=== PATIENT | female | born 1945 | race Caucasian/White ===

== ENCOUNTER → 2016-12-14 | Outpatient (CLI) | payer OTHER, MEDICARE ==
[~2016-12-14] MED LIST: ASCO10003 PO; ASPI81TA28 PO; CALC500C70 PO; COEN1CAP28 PO; CTP/1 PO; HYDR25TA4 PO; IBUP1CAP9 PO; MULT-884 PO; PRLSR20 PO; SERT-234 PO; SIMV40TA2 PO; VITA400C15 PO
--- NOTE | 2016-12-15 06:13 | PAP/PSG TECHNICIAN REPORT ---
[facility] Ear Nose And Throat Specialist Polysomnogram Report Study name: None Report date: 12/15/2016 Study date: 12/14/2016 Referring Physician: Chaparrita Matson M.D. Name: MARLIN GARDUNO Interpreting Physician: Angelina Matson M.D. Date of : 1945 Ear Nose And Throat Specialist: Bita James, PSGT. Sex: Female Age: 71 StudyType: PSG Weight: 215 lbs Height: 71 years, Height 5' 8" BMI: 32.69 Medications: Prilosec 20 mg, Meloxicam 7.5 10 mg, Zocor 40 mg, Fosamax 70 mg, Sertraline 100 mg , Lorazepam 0.5 mg, Catapres 0.1 mg, Hydrodiuril 25 mg, co q-10, Patient History 71 yr. old female in room 7, here for a diagnostic titration sleep study. Pt. had an ahi of 7.7 on her baseline study in 10/2016. Parameters Monitored NPSG: E1-M2, E2-M1, Fp1-M2, Fp2-M1, F3-M2, F4-M2, F4-M1, C3-M2, C4-M2, C4-M1, O1-M2, O2-M2, O2-M1, T3-M2, T4-M1, P3-M2, P4-M1, CHIN1, CHIN2, HR, EKG, Legs, PFLOW, SNOR, FLOW, CFLOW, Tidal Volume, THOR, ABDO, SpO2, PLTH, CPRESS, ETCO2 Wave, ETCO2, pH Sleep Architecture Sleep Stages Time at Lights Off 10:23:42 PM STAGES Time (min.) TST (%) Time at Lights On 5:49:42 AM Wake 52.5 -- Total Recording Time (TRT) 436.00 min. N1 9.0 2 Total Sleep Period (TSP) 422.5 min. N2 299.0 78 Total Sleep Time (TST) 383.5min. N3 0.0 0 Awake Time 52.5 min. REM 75.5 20 Wake after Sleep Onset 49.0 min. Sleep Efficiency (SE) 88 % Sleep Onset Latency (ARGELIA) 13.5 min. Number of Stage 1 Shifts None Awakenings 7 Stage Changes 32 Number of REM periods 4 REM 75.5 20 REM Latency 133.5 min. NREM 308.0 80 Body Position Analysis Supine Right Left Side Prone Vertical Total Sleep Time (min.) 0.1 383.5 0.0 383.50 0.0 0.0 Total Sleep Time (%) 0% 100% 0% 100 0% N/A% Total Sleep Time REM (min.) 0.0 75.5 0.0 None 0.0 0.0 Total Sleep Time NREM (min.) 0.0 308.0 0.0 None 0.0 0.0 Intermittent Wake (min.) 0.1 52.4 0.0 None 0.0 0.0 Total Sleep Period (%) 0% None None None None None Arousals Myoclonus (PLM) * Events Count Index Events Count Index Spontaneous 28 4 Events Awake (PLMW) 0 0.0 Respiratory 1 0.2 Events Asleep w/ Arousal (PLMA) 6 0.9 PLM 6 1 Events Asleep w/o Arousal (PLMS) 352 55.1 Snoring 0 0 Total Asleep 358 56.0 Total 35 5 Total 358 49 Respiratory Analysis * CA OA MA CH H RERA Total Count 0 0 0 0 5 0 5 Index 0.0 0.0 0.0 0 0.8 0 0.8 Mean Duration 0.0 0.0 0.0 0.00 15.9 0.0 15.9 Longest Duration 0.0 0.0 0.0 0.00 0.0 0.0 17.6 Respiratory Event Summary Total Supine ~Supine Right Left Prone REM NREM Apneas Count 0 N/A 0 0 N/A N/A 0 0 Index 0.0 N/A 0 0.0 N/A N/A 0 0 Hypopneas (4% Desat) Count 5 N/A 5 5 N/A N/A 0 5 Index 0.8 N/A 1 0.8 N/A N/A 0.0 1.0 Apneas & All Hypopneas Count 5 N/A 5 5 N/A N/A 0 5 Index 0.8 N/A 1 1 N/A N/A 0.0 1.0 Respiratory Events (Painter Interior Finish+All Hyp+RERA) Count 5 N/A 5 5 N/A N/A 0 5 Index 0.8 N/A 1 0.8 N/A N/A 0.0 1.0 Respiratory Related Arousal Count 1 N/A 1 1 N/A N/A 0 1 Index 0.2 N/A 0 0 N/A N/A 0 0 Snoring Analysis Supine Right Left Prone REM NREM Total Snore duration 1.5 min Snores count N/A 36 N/A N/A 14 22 36 Snore mean duration 2.5 Sec Snores index N/A 6 N/A N/A 11.1 4.3 5.6 TST with snoring (%) 0.4% Desaturation Event Summary: Minimum %SpO2 Event Count Mean/Min/Max Duration(sec.) Desaturation Index % Time In Bed > 90 15 18.8 / 6.0 / 48.0 2.3 90.6 86 - 90 1 6.0 / 6.0 / 6.0 1.5 9.4 81 - 85 0 N/A 0.0 0.0 76 - 80 0 N/A 0.0 0.0 71 - 75 0 N/A 0.0 0.0 66 - 70 0 N/A 0.0 0.0 61 - 65 0 N/A 0.0 0.0 56 - 60 0 N/A 0.0 0.0 51 - 55 0 N/A 0.0 0.0 < 50 0 N/A 0.0 0.0 Total REM NREM Awake <50% 0.0 min. 0.0 min. 0.0 min. 0.0 min. 51 - 60% 0.0 min. 0.0 min. 0.0 min. 0.0 min. 61 - 70% 0.0 min. 0.0 min. 0.0 min. 0.0 min. 71 - 80% 0.0 min. 0.0 min. 0.0 min. 0.0 min. 81 - 90% 40.4 min. 5.3 min. 22.6 min. 12.5 min. 91 - 100% 387.6 min. 70.2 min. 284.9 min. 32.5 min. Average 92 92 92 92 Minimum SpO2 86 87 88 86 Desaturation Event Index 2.1 1.6 2.5 0.0 # Desat. Events below 89% 2 1 1 N/A Time(%) with Saturation below 89% 0.2 0.0 0.1 0.1 Time(min.) with Saturation below 89% 0.8 0.1 0.4 0.3 Heart Rate Analysis End Tidal CO2 Analysis Min (bpm) Max (bpm) Average (bpm) TSP (mins) % of TSP Awake 62 161 72 Above 55 mmHg 0.0 0.0 NREM 62 80 71 50-55 mmHg 0.0 0.0 REM 61 76 69 45-50 mmHg 383.4 100.0 Overall 61 80 70 40-45 mmHg 0.0 0.0 35-40 mmHg 0.0 0.0 30-35 mmHg 0.0 0.0 Average ETCO2 0.0 Supplemental O2 Values Minimum O2 level: None Value Start Time End Time Ear Nose And Throat Specialist Comments PAP Study: MS. Garduno slept in the right, and left, positions. No cardiac arrhythmia or PLM's noted. No bruxism noted. CPAP was initiated at +5CMH2O and up-titrated to an optimal level of +6 CMH2O, which nearly eliminated all respiratory events and snoring. during titration Ms. Garduno woke to use the restroom one time during the night. Ms. Garduno stated, I did sleep as well as I do when I am in my own bed". The final report will be interpreted and signed by a sleep physician. The completed physician report will then be placed in the patient medical record. Therapy Event: Therapy (cm H20) 0 5 6 Total Time at Pressure (min.) 0.6 392.4 43.0 TST at Pressure (min.) 0.0 347.5 36.0 # Periods 1 1 1 Sleep Onset (min.) N/A 12.9 0.0 REM Onset (min.) N/A 146.4 N/A Sleep Efficiency % 0 88 83 Wakefulness (%) 100.0 11.4 16.3 Wakefulness (min.) 0.6 44.9 7.0 NREM 1 (%) 0.0 2.0 2.3 NREM 1 (min.) 0.0 8.0 1.0 NREM 2 (%) 0.0 67.3 81.4 NREM 2 (min.) 0.0 264.0 35.0 NREM 3 (%) 0.0 0.0 0.0 NREM 3 (min.) 0.0 0.0 0.0 REM (%) 0.0 19.2 0.0 REM (min.) 0.0 75.5 0.0 # Arousals N/A 32 3 Arousal Index N/A 5.5 5.0 # Snore N/A 32 4 Snore Index N/A 5.5 6.7 AHI N/A 0.7 1.7 AHI Supine N/A N/A N/A AHI Non-Supine N/A 0.7 1.7 NREM AHI N/A 0.9 1.7 REM AHI N/A 0.0 N/A RDI N/A 0.7 1.7 # Obstructive N/A 0 0 # Central Ap N/A 0 0 # Mixed N/A 0 0 # Hypopneas N/A 4 1 RERAS N/A 0 0 Total Respiratory Events N/A 4 1 Time Below SpO2 89.00% (min.) 0.0 0.5 0.0 Mean NREM SpO2 (%) N/A 92 92 Mean REM SpO2 (%) N/A 92 N/A Mean Sleep SpO2 (%) N/A 92 92 Min NREM SpO2 (%) N/A 88 90 Min REM SpO2 (%) N/A 87 N/A Position Supine (min.) 0.0 0.0 0.0 Position Non-supine (min.) 0.0 347.5 36.0 LM Index Sleep N/A 52.7 88.4 LM Index NREM N/A 62.2 88.4 LM Index REM N/A 18.3 N/A Mean Heart Rate (bpm) N/A 71 68 Min Heart Rate (bpm) N/A 61 63
--- NOTE | 2016-12-21 00:54 | POLYSOMNOGRAPH REPORT ---
REFERRING PERSON: Dr. Shira Matson. SOUVENIR AND NOVELTY MAKER: Roopa James. Ms. Vogt is a 71-year-old female who had a PSG performed in 10/2016, which showed mild sleep apnea. She returns to the sleep lab for a titration study. [place] sleepiness scale score on the evening of this study is not listed. BMI is 32.69. Following the technical and digital specifications of the [employer] [place] (AASM) a standard diagnostic polysomnogram was performed monitoring EEG, EOG, EMG (chin and leg deviations), oxygen saturation, body position, digital video, respiratory effort and airflow. The sleep Stage and event scoring was based on the AASM Manual for the Scoring of Sleep and Associated Events 2007 edition. Apneas are defined as a drop in the peak thermal sensor excursion by >90% of baseline for at least 10 seconds. Hypopneas were scored using the 4% oxygen desaturation rule (4A-[employer]) and a decrease in the nasal pressure excursions by >30% of baseline for at least 10 seconds. Respiratory effort-related arousal (RERA's) is defined as a sequence of breaths lasting at least 10 seconds characterized by increasing respiratory effort or flattening of the nasal pressure waveform leading to an arousal from sleep when the sequence of breaths does not meet criteria for an apnea or hypopnea. Apnea Hypopnea index (AHI) is defined as the number of apneas and hypopneas occurring in an hour of sleep. Respiratory disturbance index (RDI) is defined as the number of apneas, hypopneas, and RERA's occurring in an hour of sleep. Ms. Vogt's total sleep time was 422.5 minutes. Total sleep time was 383.5 minutes. Sleep efficiency was 88%. Latency to sleep onset was 13.5 minutes with wake after sleep onset of 49 minutes. Total non-REM sleep time was 308 minutes. She spent 2% of that time in N1 sleep, 78% in N2 sleep, and no time in N3 sleep. REM latency was 133.5 minutes. Total REM sleep time was 75.5 minutes or 20% of total sleep time. There were 35 cortical arousals from sleep. Twenty eight of these arousals were spontaneous, 1 was due to a respiratory event and 6 were due to periodic limb movements. There were 358 periodic limb movements noted on this test. Limb movement index was 56. Limb movement with arousal index was 0.9. There were no central obstructive or mixed apneas on this test. There were 5 hypopneas and no RERA. Apnea-hypopnea index on this titration was 0.8. There were 36 periodic limb movements. Limb movement index was 0.4. Snoring index was 36. Total sleep time with snoring was 0.4%. Mean saturation during sleep was 92% with desaturations to 86% on this study. There was no cardiac ectopy. Heart rates ranged from a low of 61 beats per minute to a high of 80 beats per minute during sleep. As stated above, this was a titration study. She was observed on a pressure of 5 for 347.5 minutes of sleep time. 75.5 of those minutes were spent in REM sleep. There was no supine REM sleep on this test. She slept on her right side the entire night. Saturations were less than 89 for 0.5 minutes of sleep time on this pressure and AHI and RDI on this pressure were both 0.7. IMPRESSION AND PLAN: Successful CPAP titration study in this patient with mild sleep apnea. She appears to do well on a CPAP pressure of 5. This eliminates her hypoxemia as well as her apnea. She should be started on this at home and a download reviewed in 1 month both to check compliance as well as AHI.
== END | disposition home or self-care (01) ==
LOC: C.NEUR 21:00
PROVIDERS: ATTEND Family Medicine
DX: G47.36 Sleep related hypoventilation in conditions classified elsewhere (principal); I10 Essential (primary) hypertension

== ENCOUNTER → 2017-10-20 | Outpatient (CLI) | payer OTHER, MEDICARE ==
--- NOTE | 2017-10-20 14:12 | MAMMOGRAPHY REPORT ---
BILATERAL DIGITAL SCREENING MAMMOGRAM TOMOSYNTHESIS WITH CAD: 10/20/2017 CLINICAL HISTORY: Routine screening. Patient has no complaints. TECHNIQUE: Breast tomosynthesis in addition to standard 2D mammography was performed. Current study was also evaluated with a Computer Aided Detection (CAD) system. COMPARISON: Comparison is made to exams dated: 10/19/2016 mammogram, 10/16/2015 mammogram, 4 mammogram, 10/09/2013 mammogram, 10/12/2012 mammogram, and 10/31/2012 ultrasound biopsy - [facility]. BREAST COMPOSITION: The tissue of both breasts is heterogeneously dense, which may obscure small mas ses. FINDINGS: There is expected architectural distortion with dystrophic calcification and a ribbon-shape d biopsy marker clip in the lower inner quadrant of the right breast, at the site of prior lumpectomy . There are diffuse benign-appearing rim calcifications throughout the right breast and a few benign -appearing calcifications left breast as well. Stable asymmetry of the size of the breasts, left gre ater than right, likely due to prior treatment of the right breast. No suspicious mass, architectura l distortion or cluster of new, suspicious microcalcifications is seen. IMPRESSION: ACR BI-RADS CATEGORY 2: BENIGN There is no mammographic evidence of malignancy. A 1 year screening mammogram is recommended. The pa tient will receive written notification of the results. Approximately 10% of breast cancers are not detected with mammography. A negative mammographic report should not delay biopsy if a clinically suggestive mass is present. Marina Roche M.D. ay/:10/20/2017 13:16:59 Contamination Consultant: Linette Loredo, M, [facility] letter sent: Normal 1/2 BI-RADS Code: ACR BI-RADS Category 2: Benign
== END | disposition home or self-care (01) ==
LOC: C.MAMM 11:04
PROVIDERS: ATTEND Internal Medicine
DX: Z12.31 Encounter for screening mammogram for malignant neoplasm of breast (principal)

== ENCOUNTER 2024-09-28 16:23 | Inpatient (IN) ==
[2024-09-28] MEDS: HYDROmorphone INJ 0.5 MG/0.5 ML SYR IV PRN (17:10)
[2024-09-28] MEDS: ONDANSETRON INJ 2 MG/ML 2 ML VIAL IV STA (17:10)
[2024-09-28 17:16] LABS: Basophils # (auto) 0.02 K/uL (0.00-0.20); Basophils % (auto) 0.2 %; Eosinophils # (auto) 0.11 K/uL (0.00-0.50); Eosinophils % (auto) 1.3 %; Hematocrit (blood only) 43.3 % (37.0-47.0); Hemoglobin 14.3 g/dl (12.0-16.0); Immature Granulocytes # (auto) 0.03 K/uL (0.01-0.20); Immature Granulocytes % (auto) 0.4 %; Lymphocytes # (auto) 1.75 K/uL (1.20-3.40); Lymphocytes % (auto) 21.4 %; Mean Corpuscular Hemoglobin 29.4 pg (25.0-34.0); Mean Corpuscular Volume 89.1 fL (80.0-100.0); Mean Platelet Volume 9.5 fL (9.4-12.4); Monocytes # (auto) 0.75 K/uL (0.11-0.59); Monocytes % (auto) 9.2 %; Neutrophils % (auto) 67.5 %; Platelet Count 185 K/uL (130-400); RDW Coefficient of Variation 13.4 % (11.5-14.5); RDW Standard Deviation 43.9 fL (36.4-46.3); Red Blood Count 4.86 M/uL (4.20-5.40); White Blood Count 8.16 K/ul (4.8-10.8)
[2024-09-28 17:22] LABS: Albumin Globulin Ratio 1.5 (0.9-2); Albumin Level 4.2 gm/dl (3.4-5.0); BUN Creatinine Ratio 35.5 (10-20); Bilirubin,Total 0.5 mg/dl (0.2-1.0); Calcium 9.5 mg/dl (8.6-10.3); Creatinine Clr Calc Pharmacy 86.6 ml/min; Globulin 2.8 gm/dl (2.5-4.0)
[2024-09-28 17:34] LABS: Appearance Urine Clear (Clear); Bilirubin Urine Negative (Negative); Blood Urine Negative (Negative); Color Urine Yellow; Glucose Urine UA Negative (Negative); Ketones Urine Negative (Negative); Leukocyte Esterase Urine Negative (Negative); Nitrite Urine Negative (Negative); Protein Urine Negative (Negative); Specific Gravity Urine 1.012 (1.000-1.030); Urobilinogen Urine Negative (Negative); pH Urine 6.5 (4.5-7.5)
--- NOTE | 2024-09-28 17:36 | Emergency Department Note ---
Impression & Plan Intractable low back pain, Ambulatory dysfunction ED Provider Note NAME: MARLIN TITUS AGE: 78 SEX: Female INFORMANT: Patient and family ED PROVIDER(S): Calixto Piper MD CHIEF COMPLAINT: Low back pain PLAN: Disposition: Admitted Outpatient prescription management: none Referral: None MEDICAL DECISION MAKING: Patient presented with increasing low back problems. No saddle anesthesia on examination. Negative straight leg raise. Patient had an IV established and was given a small dose of IV Dilaudid and Zofran. This did help. She did require supplemental oxygen to the effects of the Dilaudid. Her pain did resolve. Patient had unremarkable laboratory testing including urinalysis. Patient underwent CT imaging and appears that she has acute on chronic L4 compression fracture with marked degenerative changes, stenosis and impingement. The patient, family and I had a long discussion. I did review imaging with them. Given the patient's ambulatory dysfunction, increasing pain and dysfunction I discussed treatment options including admission. Family and patient are in agreement with admission for pain management, PT OT evaluation, and consideration for possible MR imaging. Given the patient's decline over the last few days she is at significant risk for falling. [facility] D[facility]ed case with Dr. Patel. Patient was evaluated in the ER for further management. Care/management discussed with: product marketing programs manager Level of care consideration(s): After review of the information above and other included data, I feel the patient requires escalation of care to admission Triage Nursing notes: reviewed and agree them. Vital Signs: reviewed and remarkable for hypertension Additional History obtained from: none Chronic Medical/Social Conditions affecting care: Chronic low back pain, degenerative disc disease Prior/ Outside/ External records reviewed: none Differential Diagnosis: Musculoskeletal, disc herniation, fracture, metastatic disease, cord compression, discitis, sciatica, cauda equina, infection, aortic disease, renal colic, gastrointestinal, as well as other pathologies. Diagnostics, independently interpreted by me: ECG: none Cardiac Monitoring: Cardiac monitoring ordered by me: The patient was placed on continuous cardiac monitoring and observed. It revealed a normal sinus rhythm at 80 beats per minute without ectopy or evidence of dysrhythmia. Medical decision rules: none Imaging studies: CT imaging of the lumbar spine reveals an acute on chronic L4 compression fracture. Severe degenerative disc disease. [id number] noted L5- S1. Foraminal and canal stenosis present. I refer you to the EMR for further details. HPI: 78 year old Female arrives for evaluation of increasing low back pain. Patient has history of lumbar back problems. MRI done 4 months ago per family showed degenerative disc disease and impingement. Patient underwent pain management injection 3 days ago at [facility]. Since that time she has had increasing pain. She notes some tingling and numbness in her lower extremities. She has had a history of peripheral neuropathy however and the symptoms are not significantly different today. Patient also noted a headache that developed over the last few days. Her symptoms seem to be more pronounced with standing up. Current pain is a 7 out of 10. She notes prior to the injection she was having some pain radiating down the back of both lower extremities. That has resolved. She has had some constipation issues ongoing. Family notes patient is having increasing difficulty this week ambulating and is very unsteady on her feet. Pt denies trauma, LOC, neck pain, fevers, chills, malaise, chest pain, breathing difficulties, abdominal pain, saddle parasthesias, bowel or bladder dysfunction, urinary symptoms, or other complaints.. PAST MEDICAL HISTORY: See Below, chronic low back pain, degenerative disc disease PAST SURGICAL HISTORY: See Below, SOCIAL HISTORY: See Below, retired HOME MEDICATIONS: See Below ALLERGIES: See Below VITALS: See Below PHYSICAL EXAMINATION: GENERAL: Awake, alert, [id number], in no distress HENT: Normocephalic, atraumatic. Oropharynx unremarkable. EYES: Normal conjunctiva. Sclera non-icteric. NECK: Inspection normal. Non-tender. Supple. No nuchal rigidity. FROM. No masses. RESPIRATORY: Clear to auscultation. No wheezes. No rales. Normal respiratory effort. CARDIAC: Normal rate. Normal rhythm. No murmurs. No rubs. Extremities warm and well perfused. Pulses equal. No JVD. GI: Soft, non-distended. No tenderness to palpation. No rebound or guarding. No masses. RECTAL: Deferred. MUSCULOSKELETAL: Atraumatic. Chest examination reveals no tenderness. The back is symmetrical on inspection without obvious abnormality. Injection sites negative for any sign of infection or drainage. There is no CVA tenderness to palpation. No joint edema. LOWER EXTREMITIES: Calves are equal size bilaterally and non-tender. No edema. No discoloration. NEURO: Normal sensorium. Subjective decrease sensation in the lower extremities however focal sensory or motor deficits noted. Negative straight leg raise. No saddle anesthesia. SKIN: No rash or jaundice noted. PROCEDURES: none CRITICAL CARE: none OBSERVATION NOTE: none Past Med/Surg History Problem List (Updated 09/28/24 @ 17:36 by Calixto Piper MD) Ambulatory dysfunction (Acute) Intractable low back pain (Acute) Scalp cyst Social History Smoking Status: Never smoker Preferred Language: Greenlandic Feels Safe at Home: Yes Allergies Allergies Allergy/AdvReac Type Severity Reaction Status Date / Time bee venom protein (honey bee) Allergy Severe Hand Unverified 09/28/24 18:09 swelling lisinopril Allergy Severe Mouth Unverified 09/28/24 18:09 Swelling Home Meds Home Medications Medication Instructions Recorded Confirmed acetaminophen 650 mg 650 mg PO HS 09/28/24 09/28/24 tablet,extended release ascorbic acid (vitamin C) 1,000 mg 1 g PO HS 09/28/24 09/28/24 tablet (Vitamin C) aspirin 81 mg tablet,delayed 81 mg PO HS 09/28/24 09/28/24 release atenolol 25 mg tablet 25 mg PO QAM 09/28/24 09/28/24 calcium 600 mg (as 1 cap PO HS 09/28/24 09/28/24 carbonate)-vitamin D3 5 mcg (200 unit) capsule (Calcium 600 + D(3)) coenzyme Q10 100 mg capsule 100 mg PO HS 09/28/24 09/28/24 (CoQ-10) cranberry fruit 450 mg tablet 450 mg PO HS 09/28/24 09/28/24 (cranberry) glucosamine sulf dipot 1 cap PO HS 09/28/24 09/28/24 chlr,msm,chond 550 mg-C 30 mg-keila 1 mg capsule (Glucosamine Chondroitin) hydrochlorothiazide 12.5 mg tablet 12.5 mg PO QAM 09/28/24 09/28/24 meloxicam 7.5 mg tablet 7.5 mg PO DAILY PRN Severe Pain 09/28/24 09/28/24 (Scale Score 7-10) multivitamin 1 tab PO HS 09/28/24 09/28/24 omeprazole 20 mg capsule,delayed 20 mg PO DAILYBB 11/28/24 11/28/24 release rosuvastatin 5 mg tablet 5 mg PO QAM 09/28/24 09/28/24 sertraline 100 mg tablet 150 mg PO QAM 09/28/24 09/28/24 vibegron 75 mg tablet (Gemtesa) 75 mg PO DAILY 09/28/24 09/28/24 vitamin E 268 mg (400 unit) capsule 268 mg PO HS 09/28/24 09/28/24 Results & Data (ED) Vital Signs Vital Signs - 24 hr 09/28/24 16:25 09/28/24 16:41 09/28/24 17:00 Temperature 36.7 C Temperature Source Skin Pulse Rate 72 72 69 Pulse Rate [Apical] Pulse Rhythm Regular Respiratory Rate 16 16 Respiratory Effort / Characteristics Non-Labored Spontaneous Respiratory Depth Normal Respiratory Pattern Regular Blood Pressure 138/83 Blood Pressure [Left Arm] Blood Pressure Mean 101 Blood Pressure Mean [Left Arm] Pulse Oximetry 95 95 Oxygen Delivery Method Room Air Room Air Sepsis Recent Fever Within 48 Hours No Sepsis New/Unexplained Change in Mental Status N/A Sepsis Action Taken by Nursing No Action Required 09/28/24 17:12 Temperature Temperature Source Pulse Rate Pulse Rate [Apical] 80 Pulse Rhythm Respiratory Rate 20 Respiratory Effort / Characteristics Non-Labored Spontaneous Respiratory Depth Normal Respiratory Pattern Regular Blood Pressure Blood Pressure [Left Arm] 155/83 H Blood Pressure Mean Blood Pressure Mean [Left Arm] 107 Pulse Oximetry Oxygen Delivery Method Sepsis Recent Fever Within 48 Hours Sepsis New/Unexplained Change in Mental Status Sepsis Action Taken by Nursing Laboratory Data 09/28/24 16:40 09/28/24 16:40 Lab Results 09/28/24 09/28/24 Range/Units 16:40 17:12 WBC 8.16 (4.8-10.8) K/ul RBC 4.86 (4.20-5.40) M/uL Hgb 14.3 (12.0-16.0) g/dl Hct 43.3 (37.0-47.0) % MCV 89.1 (80.0-100.0) fL MCH 29.4 (25.0-34.0) pg MCHC 33.0 (32.0-36.0) g/dL RDW Std Deviation 43.9 (36.4-46.3) fL RDW Coeff of Sanjuanita 13.4 (11.5-14.5) % Plt Count 185 (130-400) K/uL MPV 9.5 (9.4-12.4) fL Immature Gran % (Auto) 0.4 % Neut % (Auto) 67.5 % Lymph % (Auto) 21.4 % [place] % (Auto) 9.2 % Eos % (Auto) 1.3 % Baso % (Auto) 0.2 % Neut # (Auto) 5.50 (1.40-6.50) K/uL Lymph # (Auto) 1.75 (1.20-3.40) K/uL [place] # (Auto) 0.75 H (0.11-0.59) K/uL Eos # (Auto) 0.11 (0.00-0.50) K/uL Baso # (Auto) 0.02 (0.00-0.20) K/uL Immature Gran # (Auto) 0.03 (0.01-0.20) K/uL Sodium 139 (136-145) mmol/L Potassium 4.0 (3.5-5.1) mmol/L Chloride 103 (98-107) mmol/L Carbon Dioxide 29 (21-32) mmol/L Anion Gap 7 (3-11) BUN 22 (6-23) mg/dl Creatinine 0.62 (0.6-1.2) mg/dl Est Cr Clr Drug Dosing 86.6 ml/min eGFR 89.97 BUN/Creatinine Ratio 35.5 H (10-20) Glucose 99 (70-99(Fasting)) mg/dl Calcium 9.5 (8.6-10.3) mg/dl Total Bilirubin 0.5 (0.2-1.0) mg/dl AST 19 (13-39) U/L ALT 19 (7-52) U/L Alkaline Phosphatase 68 (34-104) U/L Total Protein 7.0 (6.0-8.3) gm/dl Albumin 4.2 (3.4-5.0) gm/dl Globulin 2.8 (2.5-4.0) gm/dl Albumin/Globulin Ratio 1.5 (0.9-2) Urine Color Yellow Urine Appearance Clear (Clear) Urine pH 6.5 (4.5-7.5) Ur Specific [place] 1.012 (1.000-1.030) Urine Protein Negative (Negative) Urine Glucose (UA) Negative (Negative) Urine Ketones Negative (Negative) Urine Blood Negative (Negative) Urine Nitrite Negative (Negative) Urine Bilirubin Negative (Negative) Urine Urobilinogen Negative (Negative) Ur Leukocyte Esterase Negative (Negative) Administered Medications Hydromorphone HCl (Hydromorphone Inj 0.5 Mg/0.5 Ml Syr) 0.25 mg IV Q15M PRN PRN Reason: Pain Stop: 10/12/24 17:03 Last Admin: 09/28/24 17:10 Dose: 0.25 mg Documented By: SERGEY Discontinued Medications Ondansetron HCl (Ondansetron Inj 2 Mg/Ml 2 Ml Vial) 4 mg IV NOW STA Stop: 09/28/24 17:05 Last Admin: 09/28/24 17:10 Dose: 4 mg Documented By: SERGEY Imaging Data Radiologist's Impression: Lumbar Spine CT 09/28/24 17:00 EXAM: CT Lumbar Spine Without Intravenous Contrast INDICATION: Back pain radiating down both legs. TECHNIQUE: Axial computed tomography images of the lumbar spine without intravenous contrast. Sagittal and coronal reformatted images were created and reviewed. This CT exam was performed using one or more of the following dose reduction techniques: automated exposure control, adjustment of the mA and/or kV according to patient size, and/or use of iterative reconstruction technique. COMPARISON: No relevant prior studies available. FINDINGS: Limitations: None. Vertebrae: The bones are diffusely demineralized. There is compression of the superior endplate of L4 which is likely acute on chronic. No retropulsion. There is approximately 25% generalized L4 height loss. There is moderate to severe facet arthrosis at all levels. There is moderate spondylosis and endplate sclerosis at L5-S1. There is grade 1 anterolisthesis of L4 and L5. Sacrum/coccyx: No significant abnormality noted. No acute change noted. Discs/spinal canal/neural foramina: There is severe disc narrowing L5-S1. Degenerative vacuum disc phenomenon and narrowing noted L2-L3 and L4-L5. There is mild ventral canal stenosis secondary to osteophyte disc complex at T12-L1. Ligamentous hypertrophy noted at all lumbar levels there is diffuse disc bulge with prominent subarticular components at L1-L2 with mild canal stenosis. There is asymmetric left disc protrusion and severe canal stenosis with ligamentous and facet hypertrophy at L2-L3. There is left foraminal stenosis and nerve root abutment at this level. Severe stenosis secondary to disc bulging and ligamentous and facet hypertrophy L3-L4. There is massive disc herniation along with ligamentous and facet hypertrophy causing extremely severe canal and foraminal stenosis at L4-L5. There is bilateral nerve root abutment and left side posterior displacement. There is asymmetric left lateral recess and subarticular disc bulge L5-S1. Severe bony foraminal narrowing and nerve root impingement on the left at L5-S1. Soft tissues: No significant abnormality noted. Kidneys: There is asymmetric mild dilatation of the right renal pelvis with normal caliber of the ureter. IMPRESSION: 1. Extensive degenerative changes identified with severe canal and foraminal stenosis left greater than right at L3-L4 and L4-L5. There is severe left bony foraminal encroachment and nerve impingement at L5-S1. 2. I suspect the subtle acute on chronic insufficiency fracture of the superior endplate of L4. 3. Possible mild chronic right UPJ obstruction. ACT 112: Negative or not required by law. Electronically signed by Deysi Frances 09-28-2024 5:54 PM Discharge Plan Visit Data Chief Complaint: Back Injury/Pain Stated Complaint: BACK PAIN, LEG PAIN, NUMBNESS, SPONGY ED Provider: Calixto Piper Discharge Problem: Intractable low back pain, Ambulatory dysfunction Forms Stand Alone Forms: My [facility] [employer] Prescriptions Prescriptions: No Action sertraline 100 mg tablet 150 mg PO QAM atenolol 25 mg tablet 25 mg PO QAM meloxicam 7.5 mg tablet 7.5 mg PO DAILY PRN (Reason: Severe Pain (Scale Score 7-10)) omeprazole 20 mg capsule,delayed release(DR/EC) 20 mg PO DAILYBB rosuvastatin 5 mg tablet 5 mg PO QAM hydrochlorothiazide 12.5 mg tablet 12.5 mg PO QAM Gemtesa 75 mg tablet 75 mg PO DAILY multivitamin Tablet 1 tab PO HS ascorbic acid (vitamin C) [Vitamin C] 1,000 mg Tablet 1 g PO HS aspirin 81 mg Tablet,Delayed Release (Dr/Ec) 81 mg PO HS acetaminophen [Tylenol Arthritis] 650 mg Tablet Extended Release 650 mg PO HS vitamin E 268 mg (400 unit) Capsule 268 mg PO HS coenzyme Q10 [CoQ-10] 100 mg Capsule 100 mg PO HS Calcium 600 + D(3) 600 mg-5 mcg (200 unit) Capsule 1 cap PO HS cranberry 450 mg Tablet 450 mg PO HS Rx Instructions: administer with a meal Glucosamine Chondroitin 550-30-1 mg Capsule 1 cap PO HS Referrals Referrals: Emily Zamora DO [Primary Care Provider] -
--- NOTE | 2024-09-28 17:54 | CT Scan Report ---
EXAM: CT Lumbar Spine Without Intravenous Contrast INDICATION: Back pain radiating down both legs. TECHNIQUE: Axial computed tomography images of the lumbar spine without intravenous contrast. Sagittal and coronal reformatted images were created and reviewed. This CT exam was performed using one or more of the following dose reduction techniques: automated exposure control, adjustment of the mA and/or kV according to patient size, and/or use of iterative reconstruction technique. COMPARISON: No relevant prior studies available. FINDINGS: Limitations: None. Vertebrae: The bones are diffusely demineralized. There is compression of the superior endplate of L4 which is likely acute on chronic. No retropulsion. There is approximately 25% generalized L4 height loss. There is moderate to severe facet arthrosis at all levels. There is moderate spondylosis and endplate sclerosis at L5-S1. There is grade 1 anterolisthesis of L4 and L5. Sacrum/coccyx: No significant abnormality noted. No acute change noted. Discs/spinal canal/neural foramina: There is severe disc narrowing L5-S1. Degenerative vacuum disc phenomenon and narrowing noted L2-L3 and L4-L5. There is mild ventral canal stenosis secondary to osteophyte disc complex at T12-L1. Ligamentous hypertrophy noted at all lumbar levels there is diffuse disc bulge with prominent subarticular components at L1-L2 with mild canal stenosis. There is asymmetric left disc protrusion and severe canal stenosis with ligamentous and facet hypertrophy at L2-L3. There is left foraminal stenosis and nerve root abutment at this level. Severe stenosis secondary to disc bulging and ligamentous and facet hypertrophy L3-L4. There is massive disc herniation along with ligamentous and facet hypertrophy causing extremely severe canal and foraminal stenosis at L4-L5. There is bilateral nerve root abutment and left side posterior displacement. There is asymmetric left lateral recess and subarticular disc bulge L5-S1. Severe bony foraminal narrowing and nerve root impingement on the left at L5-S1. Soft tissues: No significant abnormality noted. Kidneys: There is asymmetric mild dilatation of the right renal pelvis with normal caliber of the ureter. IMPRESSION: 1. Extensive degenerative changes identified with severe canal and foraminal stenosis left greater than right at L3-L4 and L4-L5. There is severe left bony foraminal encroachment and nerve impingement at L5-S1. 2. I suspect the subtle acute on chronic insufficiency fracture of the superior endplate of L4. 3. Possible mild chronic right UPJ obstruction. ACT 112: Negative or not required by law. Electronically signed by Deysi Frances 09-28-2024 5:54 PM
--- NOTE | 2024-09-28 19:25 | History & Physical Report ---
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 Patient had Transforaminal epidural lumbar injections on 09/25/2024 (6) Ambulatory dysfunction: (7) Hypertension: Plan Patient 78-year-old female with known severe degenerative spine disease and severe spinal stenosis of the lumbar spine seems to have acutely exacerbated after getting some spinal injections this past week. Now with increasing ambulatory dysfunction and radicular/neurogenic claudication symptoms. Patient denies any bowel or bladder issues that have changed acutely, no acute red flags that would indicate need for immediate surgical intervention tonight. Admit to the hospital for pain control PT/OT evaluations Case management consultation for possible rehab placement Scheduled Tylenol and gabapentin for pain control As needed oxycodone for moderate to severe pain MRI of the lumbar spine to evaluate for progression compared to June 2024 MRI. Pending results will determine if more urgent surgical evaluation required. Suspect patient may have spinal headache from procedure, if headache continues to worsen may need to consider head imaging. Continue outpatient medications as ordered Daughter at bedside and agreeable to plan of care History of Present Illness Chief Complaint: Spongy, weak legs and back pain and increasing difficulty with walking Primary Care Provider: Emily Zamora DO Patient is an 78-year-old female who has known severe degenerative spine, degenerative disc disease and severe spinal stenosis. Underwent pain management lumbar spine injections on Wednesday for management of her chronic back pain. Since Wednesday she is feels as though her legs have been a bit "spongy" and has had increased issues with ambulation. Came to the emergency room today for evaluation due to her concerns that she may fall. In the emergency room laboratory studies were really unremarkable. CT of the lumbar spine confirms severe degenerative spine disease. Due to some of her issues with ambulation, high risk for falling at home and potentially worsening of her symptoms of the last few days after injection was referred to our service for further evaluation. Time my evaluation patient states her pain is really fairly well- controlled. She describes a neuropathy/radiculopathy type of symptomatology down her lower back and both legs. She confirms that she has had increasing difficulties with ambulation her last few days but really has been progressing over the last few months. Her daughter who is at the bedside also confirms this. She states that since June her ability to ambulate has really declined. She had been previously walking without any assistive device. Over the past several weeks has been using a cane and most recently using a cane and furniture walking through her house. Her symptoms do seem to have exacerbated since her injections on Wednesday. Also complaining of a little bit of a headache since her injection. Denies any fever or chills. No chest pain or palpitations. She denies any issues with her bowel or bladder. Several weeks ago had some constipation but that has since improved since starting some Benefiber. It seemed to start when she started the Gemtesa. She denies any real weakness in her leg is more of a radicular type symptoms and balance and gait disorder. Patient also states that she has some significant degenerative knee arthritis. Has been seen orthopedics for this and had several injections. This is not been helping with her ambulation. Family has been encouraging patient to seek surgical opinion for her severe spinal disease. She had initially been not too interested in pursuing any type of surgical intervention, however, she does now have an appointment with orthopedic spine surgery at [facility] on October 19 Allergies Allergy/AdvReac Type Severity Reaction Status Date / Time bee venom protein (honey bee) Allergy Severe Hand Unverified 09/28/24 18:09 swelling lisinopril Allergy Severe Mouth Unverified 09/28/24 18:09 Swelling Home Medications Medication Instructions Recorded Confirmed Type acetaminophen 650 mg 650 mg PO HS 09/28/24 09/28/24 History tablet,extended release ascorbic acid (vitamin C) 1,000 mg 1 g PO HS 09/28/24 09/28/24 History tablet (Vitamin C) aspirin 81 mg tablet,delayed 81 mg PO HS 09/28/24 09/28/24 History release atenolol 25 mg tablet 25 mg PO QAM 09/28/24 09/28/24 History calcium 600 mg (as 1 cap PO HS 09/28/24 09/28/24 History carbonate)-vitamin D3 5 mcg (200 unit) capsule (Calcium 600 + D(3)) coenzyme Q10 100 mg capsule 100 mg PO HS 09/28/24 09/28/24 History (CoQ-10) cranberry fruit 450 mg tablet 450 mg PO HS 09/28/24 09/28/24 History (cranberry) glucosamine sulf dipot 1 cap PO HS 09/28/24 09/28/24 History chlr,msm,chond 550 mg-C 30 mg-keila 1 mg capsule (Glucosamine Chondroitin) hydrochlorothiazide 12.5 mg tablet 12.5 mg PO QAM 09/28/24 09/28/24 History meloxicam 7.5 mg tablet 7.5 mg PO DAILY PRN Severe Pain 09/28/24 09/28/24 History (Scale Score 7-10) multivitamin 1 tab PO HS 09/28/24 09/28/24 History omeprazole 20 mg capsule,delayed 20 mg PO DAILYBB 09/28/24 09/28/24 History release rosuvastatin 5 mg tablet 5 mg PO QAM 09/28/24 09/28/24 History sertraline 100 mg tablet 150 mg PO QAM 09/28/24 09/28/24 History vibegron 75 mg tablet (Gemtesa) 75 mg PO DAILY 09/28/24 09/28/24 History vitamin E 268 mg (400 unit) capsule 268 mg PO HS 09/28/24 09/28/24 History Past Med/Surg History Problem List (Updated 09/28/24 @ 19:22 by Albino Griffiths DO) Spinal headache Hypertension Degenerative disc disease, lumbar 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 Sclera clear Neck: Soft, no adenopathy Lungs: Clear to auscultation, decreased, no wheezes rales or rhonchi CV: S1-S2, regular Abdomen: Soft, nontender, nondistended Extremities: No significant edema Musculoskeletal: No significant pain to palpation over the lumbar spine or in the paravertebral lumbar musculature. Neuro: Strength in the lower extremity is adequate. Slight decrease strength in dorsiflexion of the right great toe when compared to the left Psych: Cooperative, normal mood Results & Data Results & Data Vital Signs (Past 12 Hours) Vital Signs Temp Pulse Pulse Resp BP BP Pulse Ox 09/28/24 19:00 67 20 155/83 H 99 09/28/24 17:12 80 20 155/83 H 09/28/24 17:00 69 09/28/24 16:41 72 16 95 09/28/24 16:25 36.7 C 72 16 138/83 95 O2 Del Method O2 Flow Rate 09/28/24 19:00 Nasal Cannula 3 09/28/24 17:12 09/28/24 17:00 09/28/24 16:41 Room Air 09/28/24 16:25 Room Air Diagnostic Findings Reviewed imaging, laboratory and diagnostic studies. Pertinent findings as below. Reviewed MRI report from outside facility from June 2024: Multi degenerative changes with pronounced and severe spinal stenosis L4-L5 and some compression of the cauda equina. There is also chronic compression fracture of L4 vertebrae CBC reviewed and stable Base metabolic profile is stable and normal ranges Urinalysis unremarkable
[2024-09-28] MEDS ORDERED: ONDANSETRON INJ 2 MG/ML 2 ML VIAL IV PRN (20:41)
[2024-09-28] MEDS ORDERED: ALUMINUM/MAGNESIUM SUSP 30 ML UDC PO PRN (20:41)
[2024-09-28] MEDS ORDERED: oxyCODONE HCL IR 5 MG TAB (IMMEDIATE RELEASE) PO PRN (20:41)
[2024-09-28] MEDS: dexAMETHasone 4 MG TAB PO SCH (22:16)
[2024-09-28] MEDS: ASPIRIN 81 MG ECTAB PO SCH (22:17)
[2024-09-28] MEDS: GABAPENTIN 100 MG CAP PO SCH (22:17)
[2024-09-28] MEDS: CALCIUM 600MG + VIT D 400 IU TAB PO SCH (22:19)
--- NOTE | 2024-09-28 22:33 | Magnetic Resonance Report ---
Exam(s): MRI L SPINE Without Contrast EXAM: MR Lumbar Spine Without Intravenous Contrast CLINICAL HISTORY: Reason for exam: spinal stenosis. TECHNIQUE: Magnetic resonance images of the lumbar spine without intravenous contrast in multiple planes. COMPARISON: CT L spine 09/28/2024. FINDINGS: No acute fracture. Chronic compression deformity at L4. Distal cord terminates at L1. Normal signal. Multilevel degenerative changes. Soft tissues unremarkable. T12-L1: Diffuse disc bulge. Moderate canal stenosis. Mild bilateral foraminal stenosis. L1-L2: Trace diffuse disc bulge and facet hypertrophy. Mild canal stenosis. No foraminal stenosis. L2-3: Diffuse disc bulge with facet arthropathy and ligamentous thickening. Epidural lipomatosis. Severe canal stenosis. Mild left and no significant right foraminal stenosis. L3-4: Diffuse disc bulge and facet arthropathy with epidural lipomatosis. Moderate canal stenosis. Moderate right and mild left foraminal stenosis. L4-5: Anterolisthesis with diffuse disc bulge and severe facet hypertrophy. The canal is severely stenotic. Severe right and severe left foraminal stenosis. L5-S1: Diffuse disc bulge eccentric to the left. Left lateral recess stenosis. Mild right and moderate left foraminal stenosis. IMPRESSION: 1. Severe degenerative changes with superimposed epidural left lipomatosis as described. 2. Multilevel high-grade stenosis most pronounced at L4-5 where there is very severe canal stenosis. The degree of stenosis is enough to cause cauda equina syndrome. Correlate clinically. 3. Additional multilevel stenosis as described. Electronically signed by: Matt Dover MD 09/28/24 22:32 PM
[2024-09-28] MEDS: ACETAMINOPHEN 500 MG TAB PO SCH (22:36)
[2024-09-29] MEDS: PANTOprazole 40 MG TAB PO SCH (06:13)
[2024-09-29] MEDS: ATENOLOL 25 MG TABLET PO SCH (09:45)
[2024-09-29] MEDS: SERTRALINE HCL 50 MG TABLET PO SCH (09:45)
[2024-09-29] MEDS: ROSUVASTATIN CALCIUM 5 MG TAB PO SCH (09:45)
[2024-09-29] MEDS: VIBEGRON 75 MG TAB PO SCH (09:46)
--- NOTE | 2024-09-29 11:42 | Hospitalist Progress Note ---
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 Patient denies any bowel or bladder issues that have changed acutely, no acute red flags that would indicate need for immediate surgical intervention at this time. Spinal Stenosis Neurogenic Claudication patient presenting with known history of lower back pain Is scheduled to follow-up with an ortho spine surgeon in mid October at [facility] CT lumbar spine noting "Extensive degenerative changes identified with severe canal and foraminal stenosis left greater than right at L3-L4 and L4-L5. There is severe left bony foraminal encroachment and nerve impingement at L5-S1." MRI lumbar spine noting the same as well as "2. Multilevel high-grade stenosis most pronounced at L4-5 where there is very severe canal stenosis. The degree of stenosis is enough to cause cauda equina syndrome. Correlate clinically." Patient currently denying saddle anesthesia or numbness and tingling, muscle weakness or bladder or bowel incontinence Orthospine consult placed to Dr. Simpson for further evaluation and management Continue pain meds as needed-also on steroids and newly started gabapentin PT OT-currently recommending acute rehab Dizziness patient with an episode of dizziness while working with PT EKG ordered Orthostatic vitals ordered If persistent consider telemetry monitoring Patient newly started on gabapentin, consider holding if persistent PT/OT Possible Chronic UPJ Obstruction Noted on CT of the lumbar spine UA unremarkable No noted acute kidney injury Consider CT abdomen pelvis or renal imaging for further evaluation continue other home meds as ordered Diet:HH DVT prophylaxis: heparin SQ Dispo: PT/OT recommending acute rehab Admission and Anticipated Discharge Date Admission Date: September 28, 2024 Subjective patient was seen in the a.m. Sitting up in bed, stated that she had been up and walking with a walker Stated that her pain was controlled at that time Denied any urinary incontinence or saddle anesthesia Daughter called and updated, advised of orthospine consult placed. Daughter agreeable to patient staying for further evaluation Review of Systems Review of Systems: All systems reviewed & are unremarkable except as noted in Subjective Physical Exam Physical Exam: General: Alert, oriented. No acute distress Psych: Appropriate mood and affect Neuro: able to move lower extremities HEENT: NC/AT CV: RRR Resp: Breath sounds clear bilaterally, no increased effort of breathing Abdomen:Soft, nontender Extremities:able to move lower extremities bilaterally. Results & Data Results & Data Vital Signs (Past 12 Hours) Vital Signs Temp Pulse Resp BP Pulse Ox O2 Del Method 09/29/24 09:40 80 14 123/68 93 Room Air 09/29/24 07:33 36.6 C 70 16 154/76 H 91 Room Air Diagnostic Findings Lumbar Spine CT 09/28/24 17:00 EXAM: CT Lumbar Spine Without Intravenous Contrast INDICATION: Back pain radiating down both legs. TECHNIQUE: Axial computed tomography images of the lumbar spine without intravenous contrast. Sagittal and coronal reformatted images were created and reviewed. This CT exam was performed using one or more of the following dose reduction techniques: automated exposure control, adjustment of the mA and/or kV according to patient size, and/or use of iterative reconstruction technique. COMPARISON: No relevant prior studies available. FINDINGS: Limitations: None. Vertebrae: The bones are diffusely demineralized. There is compression of the superior endplate of L4 which is likely acute on chronic. No retropulsion. There is approximately 25% generalized L4 height loss. There is moderate to severe facet arthrosis at all levels. There is moderate spondylosis and endplate sclerosis at L5-S1. There is grade 1 anterolisthesis of L4 and L5. Sacrum/coccyx: No significant abnormality noted. No acute change noted. Discs/spinal canal/neural foramina: There is severe disc narrowing L5-S1. Degenerative vacuum disc phenomenon and narrowing noted L2-L3 and L4-L5. There is mild ventral canal stenosis secondary to osteophyte disc complex at T12-L1. Ligamentous hypertrophy noted at all lumbar levels there is diffuse disc bulge with prominent subarticular components at L1-L2 with mild canal stenosis. There is asymmetric left disc protrusion and severe canal stenosis with ligamentous and facet hypertrophy at L2-L3. There is left foraminal stenosis and nerve root abutment at this level. Severe stenosis secondary to disc bulging and ligamentous and facet hypertrophy L3-L4. There is massive disc herniation along with ligamentous and facet hypertrophy causing extremely severe canal and foraminal stenosis at L4-L5. There is bilateral nerve root abutment and left side posterior displacement. There is asymmetric left lateral recess and subarticular disc bulge L5-S1. Severe bony foraminal narrowing and nerve root impingement on the left at L5-S1. Soft tissues: No significant abnormality noted. Kidneys: There is asymmetric mild dilatation of the right renal pelvis with normal caliber of the ureter. IMPRESSION: 1. Extensive degenerative changes identified with severe canal and foraminal stenosis left greater than right at L3-L4 and L4-L5. There is severe left bony foraminal encroachment and nerve impingement at L5-S1. 2. I suspect the subtle acute on chronic insufficiency fracture of the superior endplate of L4. 3. Possible mild chronic right UPJ obstruction. ACT 112: Negative or not required by law. Electronically signed by Deysi Frances 09-28-2024 5:54 PM Lumbar Spine MRI 09/28/24 19:10 Exam(s): MRI L SPINE Without Contrast EXAM: MR Lumbar Spine Without Intravenous Contrast CLINICAL HISTORY: Reason for exam: spinal stenosis. TECHNIQUE: Magnetic resonance images of the lumbar spine without intravenous contrast in multiple planes. COMPARISON: CT L spine 09/28/2024. FINDINGS: No acute fracture. Chronic compression deformity at L4. Distal cord terminates at L1. Normal signal. Multilevel degenerative changes. Soft tissues unremarkable. T12-L1: Diffuse disc bulge. Moderate canal stenosis. Mild bilateral foraminal stenosis. L1-L2: Trace diffuse disc bulge and facet hypertrophy. Mild canal stenosis. No foraminal stenosis. L2-3: Diffuse disc bulge with facet arthropathy and ligamentous thickening. Epidural lipomatosis. Severe canal stenosis. Mild left and no significant right foraminal stenosis. L3-4: Diffuse disc bulge and facet arthropathy with epidural lipomatosis. Moderate canal stenosis. Moderate right and mild left foraminal stenosis. L4-5: Anterolisthesis with diffuse disc bulge and severe facet hypertrophy. The canal is severely stenotic. Severe right and severe left foraminal stenosis. L5-S1: Diffuse disc bulge eccentric to the left. Left lateral recess stenosis. Mild right and moderate left foraminal stenosis. IMPRESSION: 1. Severe degenerative changes with superimposed epidural left lipomatosis as described. 2. Multilevel high-grade stenosis most pronounced at L4-5 where there is very severe canal stenosis. The degree of stenosis is enough to cause cauda equina syndrome. Correlate clinically. 3. Additional multilevel stenosis as described. Electronically signed by: Matt Dover MD 09/28/24 22:32 PM
[2024-09-29] MEDS: DOCUSATE SODIUM 100 MG CAP PO SCH (12:44)
[2024-09-29] MEDS: HEPARIN SOD 5,000 UNIT/0.5 ML VIAL SQ SCH (21:36)
[2024-09-30 06:42] LABS: Hematocrit (blood only) 39.3 % (37.0-47.0); Mean Corpuscular Hemoglobin 29.1 pg (25.0-34.0); Mean Corpuscular Hgb Conc 33.1 g/dL (32.0-36.0); Mean Corpuscular Volume 88.1 fL (80.0-100.0); Mean Platelet Volume 9.8 fL (9.4-12.4); Platelet Count 162 K/uL (130-400); RDW Coefficient of Variation 13.1 % (11.5-14.5); RDW Standard Deviation 42.3 fL (36.4-46.3); Red Blood Count 4.46 M/uL (4.20-5.40); White Blood Count 8.29 K/ul (4.8-10.8)
[2024-09-30 07:10] LABS: Anion Gap 6 (3-11); BUN Creatinine Ratio 26.9 (10-20); Blood Urea Nitrogen 18 mg/dl (6-23); Calcium 9.7 mg/dl (8.6-10.3); Carbon Dioxide 32 mmol/L (21-32); Chloride 100 mmol/L (98-107); Creatinine Clr Calc Pharmacy 79.9 ml/min; Glucose 155 mg/dl (70-99(Fasting)); Sodium 138 mmol/L (136-145)
[2024-09-30] MEDS: INFLUENZA VACC TS2024-25(65y+)/PF (IIV3) 0.5mL Syr IM ONE (08:13)
--- NOTE | 2024-09-30 11:06 | Orthopedic Consultation ---
Date of Consultation September 30, 2024 Assessment & Plan (1) Spinal stenosis of lumbar region with neurogenic claudication: Assessment lumbar spinal stenosis with spondylolisthesis and neurogenic claudication. Plan, I have had a discussion with the patient and her daughter reviewing her MRI findings and clinical course. At this point she could consider surgical intervention. Would require a lumbar decompression and fusion L4-L5 with decompression L2-L3 L3-L4. Risk benefits pros cons and alternatives were all in detail. Risk include but not limited to anesthesia blindness stroke paralysis nerve damage blood loss requiring transfusion infection requiring reoperation benefits would hopefully be improvement of her neurogenic claudication and overall function. At this time she would like to pursue surgery. Will try to have this arranged for him soon as possible. I am here in surgery next week and we would plan for possibly Wednesday. History of Present Illness Reason for Consultation: Back and bilateral leg pain Attending Physician: Roopa Jean MD History of Present Illness This is a very pleasant 78-year-old female presents the hospital with a decline in status. She is having significant back pain and inability to stand or walk any distance. She does have known progressive spinal stenosis of the course of several years. She is status post epidural injection Wednesday of this week. It has helped a component of her posterior thigh pain but her leg weakness and back pain continued to persist. She states she can only stand for few minutes at a time. She must use a walker for any ambulation and it can only be for a very short distance. She describes a sensation of weakness into the lower ex tremities. She denies any recent trauma fall or event. Allergies Allergy/AdvReac Type Severity Reaction Status Date / Time bee venom protein (honey bee) Allergy Severe Hand Unverified 09/28/24 18:09 swelling lisinopril Allergy Severe Mouth Unverified 09/28/24 18:09 Swelling Home Medications Medication Instructions Recorded Confirmed Type acetaminophen 650 mg 650 mg PO HS 09/28/24 09/28/24 History tablet,extended release ascorbic acid (vitamin C) 1,000 mg 1 g PO HS 09/28/24 09/28/24 History tablet (Vitamin C) aspirin 81 mg tablet,delayed 81 mg PO HS 09/28/24 09/28/24 History release atenolol 25 mg tablet 25 mg PO QAM 09/28/24 09/28/24 History calcium 600 mg (as 1 cap PO HS 09/28/24 09/28/24 History carbonate)-vitamin D3 5 mcg (200 unit) capsule (Calcium 600 + D(3)) coenzyme Q10 100 mg capsule 100 mg PO HS 09/28/24 09/28/24 History (CoQ-10) cranberry fruit 450 mg tablet 450 mg PO HS 09/28/24 09/28/24 History (cranberry) glucosamine sulf dipot 1 cap PO HS 09/28/24 09/28/24 History chlr,msm,chond 550 mg-C 30 mg-keila 1 mg capsule (Glucosamine Chondroitin) hydrochlorothiazide 12.5 mg tablet 12.5 mg PO QAM 09/28/24 09/28/24 History meloxicam 7.5 mg tablet 7.5 mg PO DAILY PRN Severe Pain 09/28/24 09/28/24 History (Scale Score 7-10) multivitamin 1 tab PO HS 09/28/24 09/28/24 History omeprazole 20 mg capsule,delayed 20 mg PO DAILYBB 09/28/24 09/28/24 History release rosuvastatin 5 mg tablet 5 mg PO QAM 09/28/24 09/28/24 History sertraline 100 mg tablet 150 mg PO QAM 09/28/24 09/28/24 History vibegron 75 mg tablet (Gemtesa) 75 mg PO DAILY 09/28/24 09/28/24 History vitamin E 268 mg (400 unit) capsule 268 mg PO HS 09/28/24 09/28/24 History Patient History Social History Smoking Status: Never smoker Second Hand Exposure: No; Do You Dip or Chew Tobacco: No; Tobacco Cessation Education Requested by Patient: No Hx Alcohol Use: No Hx Substance Use: No Preferred Language: Upper Sorbian Communication Ability: Effective Policy Writer Required: No Beliefs That Will Affect Care: None Current Living Situation: Spouse Other Information That Helps Us Care for You: No Feels Safe at Home: Yes Safety Concerns: Feels Safe At This Time Assistive Devices: Cane Physical Exam Physical Exam: On exam patient is in bed at this time. She is currently comfortable. Her daughter is with her. She exhibits reasonable bilateral plantarflexion dorsiflexion quadriceps. Negative logroll. Sensory is intact. Deep tendon reflexes diminished. Results & Data Vital Signs (Past 12 Hours) Vital Signs Temp Pulse Resp BP Pulse Ox O2 Del Method 09/30/24 07:36 36.3 C L 60 18 164/72 H 92 Room Air 09/30/24 07:18 36.5 C 76 16 213/88 H 93 Room Air
--- NOTE | 2024-09-30 12:05 | XRay Report ---
EXAM: Radiographs of the Chest 2 Views INDICATION: Preoperative evaluation. TECHNIQUE: Frontal and lateral views of the chest. COMPARISON: No relevant prior studies available. FINDINGS: Lungs and pleural spaces: No consolidation or pulmonary edema. No pleural effusion or pneumothorax. Heart: Cardiomegaly. Mediastinum: Normal contour. Bones/joints: Degenerative changes noted throughout the spine and both shoulders. No lytic or blastic lesions noted. Old right rib fractures. Lymph nodes: Right axillary node clips. IMPRESSION: No acute cardiopulmonary disease. ACT 112: Negative or not required by law. Electronically signed by Deysi Frances 09-30-2024 12:04 PM
--- NOTE | 2024-09-30 13:04 | Electrocardiogram Report ---
Test Reason : Blood Pressure : */* mmHG Vent. Rate : 73 BPM Atrial Rate : 73 BPM P-R Int : 148 ms QRS Dur : 82 ms QT Int : 400 ms P-R-T Axes : 59 19 -1 degrees QTcB Int : 440 ms Normal sinus rhythm Minimal voltage criteria for LVH, may be normal variant Inferior infarct , age undetermined Abnormal ECG No previous ECGs available Confirmed by Sukhdeep Duvall ([id number]) on 09/30/2024 1:04:31 PM Referred By: REFERRED SELF Confirmed By: Sukhdeep Duvall
--- NOTE | 2024-09-30 14:58 | Hospitalist Progress Note ---
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 Patient denies any bowel or bladder issues that have changed acutely, no acute red flags that would indicate need for immediate surgical intervention at this time. Spinal Stenosis Neurogenic Claudication patient presenting with known history of lower back pain Is scheduled to follow-up with an ortho spine surgeon in mid October at [facility] CT lumbar spine noting "Extensive degenerative changes identified with severe canal and foraminal stenosis left greater than right at L3-L4 and L4-L5. There is severe left bony foraminal encroachment and nerve impingement at L5-S1." MRI lumbar spine noting the same as well as "2. Multilevel high-grade stenosis most pronounced at L4-5 where there is very severe canal stenosis. The degree of stenosis is enough to cause cauda equina syndrome. Correlate clinically." Patient currently denying saddle anesthesia or numbness and tingling, muscle weakness or bladder or bowel incontinence Orthospine consult placed to Dr. Simpson for further evaluation and management - anticipating surgery on Wed10/02/24 Continue pain meds as needed-also on steroids and newly started gabapentin PT OT-currently recommending acute rehab Dizziness patient with an episode of dizziness while working with PT EKG ordered and unremarkable Orthostatic vitals ordered- BP somewhat unchanged, HR increased but could be in setting of acute pain If persistent consider telemetry monitoring Patient newly started on gabapentin, consider holding if persistent PT/OT Possible Chronic UPJ Obstruction Noted on CT of the lumbar spine UA unremarkable No noted acute kidney injury Consider CT abdomen pelvis or renal imaging for further evaluation continue other home meds as ordered Diet:HH DVT prophylaxis: heparin SQ Dispo: PT/OT recommending acute rehab Admission and Anticipated Discharge Date Admission Date: September 28, 2024 Subjective patient was seen with her daughter at bedside They had a discussion with orthospine and will be having surgery next week, they are agreeable States that her headache has improved but is now at the front States she has been up and ambulating to the bathroom still denying any red flag symptoms of urinary incontinence or bowel incontinence, saddle anesthesia. Notes some numbness and tingling and daughter states she has been having lower extremity weakness Review of Systems Review of Systems: All systems reviewed & are unremarkable except as noted in Subjective Physical Exam Physical Exam: General: Alert, oriented. No acute distress Psych: Appropriate mood and affect Neuro: able to move lower extremities, strength intact bilaterally HEENT: NC/AT CV: RRR Resp: Breath sounds clear bilaterally, no increased effort of breathing Abdomen:Soft, nontender Extremities:able to move lower extremities bilaterally. Results & Data Results & Data Vital Signs (Past 12 Hours) Vital Signs Temp Pulse Resp BP Pulse Ox O2 Del Method 09/30/24 14:46 36.5 C 66 16 149/74 H 94 Room Air 09/30/24 07:36 36.3 C L 60 18 164/72 H 92 Room Air 09/30/24 07:18 36.5 C 76 16 213/88 H 93 Room Air
[2024-10-01 06:21] LABS: Hematocrit (blood only) 40.3 % (37.0-47.0); Hemoglobin 13.4 g/dl (12.0-16.0); Mean Corpuscular Hemoglobin 29.6 pg (25.0-34.0); Mean Corpuscular Hgb Conc 33.3 g/dL (32.0-36.0); Mean Corpuscular Volume 89.2 fL (80.0-100.0); Mean Platelet Volume 10.1 fL (9.4-12.4); Platelet Count 181 K/uL (130-400); RDW Coefficient of Variation 13.2 % (11.5-14.5); RDW Standard Deviation 43.4 fL (36.4-46.3); Red Blood Count 4.52 M/uL (4.20-5.40); White Blood Count 8.28 K/ul (4.8-10.8)
[2024-10-01 06:34] LABS: BUN Creatinine Ratio 32.4 (10-20); Calcium 9.4 mg/dl (8.6-10.3); Creatinine Clr Calc Pharmacy 75.4 ml/min; Magnesium 1.9 mg/dl (1.7-2.4); Phosphorus 4.3 mg/dl (2.5-4.9); Potassium 4.3 mmol/L (3.5-5.1)
[2024-10-01] MEDS: POLYETHYLENE (MIRALAX) 17 GM PACK PO PRN (10:47)
--- NOTE | 2024-10-01 12:19 | Hospitalist Progress Note ---
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 Patient denies any saddle anesthesia/constipation/urinary retention/or incontinence/numbness/tingling of lower extremities at this time. Spinal Stenosis Neurogenic Claudication CT lumbar spine showed severe canal/foraminal stenosis L> R, -L3-L5, severe left bony encroachment/nerve impingement at L5-S1 MRI lumbar spine shows high-grade stenosis L4-5, places patient at high risk for cauda equina Orthospine following, plan for surgery on 10/02 or 10/03 -Continue gabapentin/steroids/Oxy for pain Dizzinessresolved Orthostatic BPs negative, no further complaints of dizziness Hx HLD/HTN: Continue aspirin/atenolol/HCTZ/statin Hx depression: Continue sertraline Possible Chronic UPJ Obstruction -Noted on CT of the lumbar spine UA unremarkable, kidney function WNL Consider CT A/P if patient develops symptoms Total 45 minutes was spent on chart review/reviewing diagnostic data/facilitating plan of care/discussion with consultants DVT prophylaxis: heparin SQ Dispo: PT/OT recommending acute rehab Admission and Anticipated Discharge Date Admission Date: September 28, 2024 Subjective Patient seen and examined. Sitting up in a chair for breakfast. Denies any complaints. Reports her pain is controlled. Reports being anxious for surgery this week. Denies any numbness/tingling to lower extremities. No saddle anest hesia noted Review of Systems Review of Systems: All systems reviewed & are unremarkable except as noted in HPI & below Physical Exam Constitutional: WD/WN, vitals as above Eyes: PERRL, conjunctivae normal, anicteric sclerae ENMT: external ear and nose normal, oropharynx normal Neck: trachea midline, no thyromegaly Respiratory: normal respiratory effort, lungs clear to auscultation Gastrointestinal (Abdomen): normal bowel sounds, soft, nontender, no hepatosplenomegaly Musculoskeletal: no cyanosis or clubbing, extremities motor strength 5/5 Skin: no rashes, warm and dry Neurologic: PERRL, EOMI, accommodation nl, no face palsy, no dysarthria Psychiatric: A+Ox3, euthymic affect Lymphatic: no cervical or axillary lymphadenopathy Results & Data Results & Data Vital Signs (Past 12 Hours) Vital Signs Temp Pulse Resp BP Pulse Ox O2 Del Method 10/01/24 07:21 36.2 C L 61 18 162/84 H 93 Room Air Diagnostic Findings Laboratory Results WBC 8.28 K/ul (4.8-10.8) 10/01/24 05:49 RBC 4.52 M/uL (4.20-5.40) 10/01/24 05:49 Hgb 13.4 g/dl (12.0-16.0) 10/01/24 05:49 Hct 40.3 % (37.0-47.0) 10/01/24 05:49 MCV 89.2 fL (80.0-100.0) 10/01/24 05:49 MCH 29.6 pg (25.0-34.0) 10/01/24 05:49 MCHC 33.3 g/dL (32.0-36.0) 10/01/24 05:49 RDW Std Deviation 43.4 fL (36.4-46.3) 10/01/24 05:49 RDW Coeff of Sanjuanita 13.2 % (11.5-14.5) 10/01/24 05:49 Plt Count 181 K/uL (130-400) 10/01/24 05:49 MPV 10.1 fL (9.4-12.4) 10/01/24 05:49 Immature Gran % (Auto) 0.4 % 09/28/24 16:40 Neut % (Auto) 67.5 % 09/28/24 16:40 Lymph % (Auto) 21.4 % 09/28/24 16:40 Otero % (Auto) 9.2 % 09/28/24 16:40 Eos % (Auto) 1.3 % 09/28/24 16:40 Baso % (Auto) 0.2 % 09/28/24 16:40 Neut # (Auto) 5.50 K/uL (1.40-6.50) 09/28/24 16:40 Lymph # (Auto) 1.75 K/uL (1.20-3.40) 09/28/24 16:40 Otero # (Auto) 0.75 K/uL (0.11-0.59) H 09/28/24 16:40 Eos # (Auto) 0.11 K/uL (0.00-0.50) 09/28/24 16:40 Baso # (Auto) 0.02 K/uL (0.00-0.20) 09/28/24 16:40 Immature Gran # (Auto) 0.03 K/uL (0.01-0.20) 09/28/24 16:40 Sodium 140 mmol/L (136-145) 10/01/24 05:49 Potassium 4.3 mmol/L (3.5-5.1) 10/01/24 05:49 Chloride 100 mmol/L (98-107) 10/01/24 05:49 Carbon Dioxide 32 mmol/L (21-32) 10/01/24 05:49 Anion Gap 8 (3-11) 10/01/24 05:49 BUN 23 mg/dl (6-23) 10/01/24 05:49 Creatinine 0.71 mg/dl (0.6-1.2) 10/01/24 05:49 Est Cr Clr Drug Dosing 75.4 ml/min 10/01/24 05:49 eGFR 85.90 10/01/24 05:49 BUN/Creatinine Ratio 32.4 (10-20) H 10/01/24 05:49 Glucose 137 mg/dl (70-99(Fasting)) H 10/01/24 05:49 Calcium 9.4 mg/dl (8.6-10.3) 10/01/24 05:49 Phosphorus 4.3 mg/dl (2.5-4.9) 10/01/24 05:49 Magnesium 1.9 mg/dl (1.7-2.4) 10/01/24 05:49 Total Bilirubin 0.5 mg/dl (0.2-1.0) 09/28/24 16:40 AST 19 U/L (13-39) 09/28/24 16:40 ALT 19 U/L (7-52) 09/28/24 16:40 Alkaline Phosphatase 68 U/L (34-104) 09/28/24 16:40 Total Protein 7.0 gm/dl (6.0-8.3) 09/28/24 16:40 Albumin 4.2 gm/dl (3.4-5.0) 09/28/24 16:40 Globulin 2.8 gm/dl (2.5-4.0) 09/28/24 16:40 Albumin/Globulin Ratio 1.5 (0.9-2) 09/28/24 16:40 Urine Color Yellow 09/28/24 17:12 Urine Appearance Clear (Clear) 09/28/24 17:12 Urine pH 6.5 (4.5-7.5) 09/28/24 17:12 Ur Specific [place] 1.012 (1.000-1.030) 09/28/24 17:12 Urine Protein Negative (Negative) 09/28/24 17:12 Urine Glucose (UA) Negative (Negative) 09/28/24 17:12 Urine Ketones Negative (Negative) 09/28/24 17:12 Urine Blood Negative (Negative) 09/28/24 17:12 Urine Nitrite Negative (Negative) 09/28/24 17:12 Urine Bilirubin Negative (Negative) 09/28/24 17:12 Urine Urobilinogen Negative (Negative) 09/28/24 17:12 Ur Leukocyte Esterase Negative (Negative) 09/28/24 17:[address] 09/28/24 17:00 EXAM: CT Lumbar Spine Without Intravenous Contrast INDICATION: Back pain radiating down both legs. TECHNIQUE: Axial computed tomography images of the lumbar spine without intravenous contrast. Sagittal and coronal reformatted images were created and reviewed. This CT exam was performed using one or more of the following dose reduction techniques: automated exposure control, adjustment of the mA and/or kV according to patient size, and/or use of iterative reconstruction technique. COMPARISON: No relevant prior studies available. FINDINGS: Limitations: None. Vertebrae: The bones are diffusely demineralized. There is compression of the superior endplate of L4 which is likely acute on chronic. No retropulsion. There is approximately 25% generalized L4 height loss. There is moderate to severe facet arthrosis at all levels. There is moderate spondylosis and endplate sclerosis at L5-S1. There is grade 1 anterolisthesis of L4 and L5. Sacrum/coccyx: No significant abnormality noted. No acute change noted. Discs/spinal canal/neural foramina: There is severe disc narrowing L5-S1. Degenerative vacuum disc phenomenon and narrowing noted L2-L3 and L4-L5. There is mild ventral canal stenosis secondary to osteophyte disc complex at T12-L1. Ligamentous hypertrophy noted at all lumbar levels there is diffuse disc bulge with prominent subarticular components at L1-L2 with mild canal stenosis. There is asymmetric left disc protrusion and severe canal stenosis with ligamentous and facet hypertrophy at L2-L3. There is left foraminal stenosis and nerve root abutment at this level. Severe stenosis secondary to disc bulging and ligamentous and facet hypertrophy L3-L4. There is massive disc herniation along with ligamentous and facet hypertrophy causing extremely severe canal and foraminal stenosis at L4-L5. There is bilateral nerve root abutment and left side posterior displacement. There is asymmetric left lateral recess and subarticular disc bulge L5-S1. Severe bony foraminal narrowing and nerve root impingement on the left at L5-S1. Soft tissues: No significant abnormality noted. Kidneys: There is asymmetric mild dilatation of the right renal pelvis with normal caliber of the ureter. IMPRESSION: 1. Extensive degenerative changes identified with severe canal and foraminal stenosis left greater than right at L3-L4 and L4-L5. There is severe left bony foraminal encroachment and nerve impingement at L5-S1. 2. I suspect the subtle acute on chronic insufficiency fracture of the superior endplate of L4. 3. Possible mild chronic right UPJ obstruction. ACT 112: Negative or not required by law. Electronically signed by Deysi Frances 09-28-2024 5:54 PM Lumbar Spine MRI 09/28/24 19:10 Exam(s): MRI L SPINE Without Contrast EXAM: MR Lumbar Spine Without Intravenous Contrast CLINICAL HISTORY: Reason for exam: spinal stenosis. TECHNIQUE: Magnetic resonance images of the lumbar spine without intravenous contrast in multiple planes. COMPARISON: CT L spine 09/28/2024. FINDINGS: No acute fracture. Chronic compression deformity at L4. Distal cord terminates at L1. Normal signal. Multilevel degenerative changes. Soft tissues unremarkable. T12-L1: Diffuse disc bulge. Moderate canal stenosis. Mild bilateral foraminal stenosis. L1-L2: Trace diffuse disc bulge and facet hypertrophy. Mild canal stenosis. No foraminal stenosis. L2-3: Diffuse disc bulge with facet arthropathy and ligamentous thickening. Epidural lipomatosis. Severe canal stenosis. Mild left and no significant right foraminal stenosis. L3-4: Diffuse disc bulge and facet arthropathy with epidural lipomatosis. Moderate canal stenosis. Moderate right and mild left foraminal stenosis. L4-5: Anterolisthesis with diffuse disc bulge and severe facet hypertrophy. The canal is severely stenotic. Severe right and severe left foraminal stenosis. L5-S1: Diffuse disc bulge eccentric to the left. Left lateral recess stenosis. Mild right and moderate left foraminal stenosis. IMPRESSION: 1. Severe degenerative changes with superimposed epidural left lipomatosis as described. 2. Multilevel high-grade stenosis most pronounced at L4-5 where there is very severe canal stenosis. The degree of stenosis is enough to cause cauda equina syndrome. Correlate clinically. 3. Additional multilevel stenosis as described. Electronically signed by: Matt Dover MD 09/28/24 22:32 PM Chest X-Ray 09/30/24 11:02 EXAM: Radiographs of the Chest 2 Views INDICATION: Preoperative evaluation. TECHNIQUE: Frontal and lateral views of the chest. COMPARISON: No relevant prior studies available. FINDINGS: Lungs and pleural spaces: No consolidation or pulmonary edema. No pleural effusion or pneumothorax. Heart: Cardiomegaly. Mediastinum: Normal contour. Bones/joints: Degenerative changes noted throughout the spine and both shoulders. No lytic or blastic lesions noted. Old right rib fractures. Lymph nodes: Right axillary node clips. IMPRESSION: No acute cardiopulmonary disease. ACT 112: Negative or not required by law. Electronically signed by Deysi Frances 09-30-2024 12:04 PM
[2024-10-01] MEDS: MAGNESIUM HYDROXIDE SUSP 30 ML UDC PO PRN (20:37)
[2024-10-02 07:24] LABS: Hematocrit (blood only) 41.5 % (37.0-47.0); Hemoglobin 13.5 g/dl (12.0-16.0); Mean Corpuscular Hemoglobin 29.2 pg (25.0-34.0); Mean Corpuscular Hgb Conc 32.5 g/dL (32.0-36.0); Mean Corpuscular Volume 89.6 fL (80.0-100.0); Mean Platelet Volume 10.1 fL (9.4-12.4); Platelet Count 178 K/uL (130-400); RDW Coefficient of Variation 13.2 % (11.5-14.5); RDW Standard Deviation 43.4 fL (36.4-46.3); Red Blood Count 4.63 M/uL (4.20-5.40); White Blood Count 8.19 K/ul (4.8-10.8)
[2024-10-02 07:44] LABS: BUN Creatinine Ratio 35.1 (10-20); Calcium 9.6 mg/dl (8.6-10.3); Creatinine Clr Calc Pharmacy 69.5 ml/min; Magnesium 2.4 mg/dl (1.7-2.4); Phosphorus 3.8 mg/dl (2.5-4.9); Potassium 4.7 mmol/L (3.5-5.1)
--- NOTE | 2024-10-02 10:16 | Hospitalist Progress Note ---
Date of Service October 02, 2024 Assessment & Plan (1) Spinal stenosis of lumbar region with neurogenic claudication: Plan Betty Feldman is an 78-year-old female with known severe degenerative spine disease and severe spinal stenosis of the lumbar spine who presented to the ED on 09/28/2024 with intractable lower back pain and increasing ambulatory dysfunction in addition to radicular/neurogenic claudication symptoms. Spinal Stenosis, Neurogenic Claudication: Lumbar spine CT -> Extensive degenerative changes with severe canal and foraminal stenosis (L>R) at L3-L4 and L4-L5, severe L bony foraminal encroachment/nerve impingement at L5-S1. Lumbar spine MRI -> Multilevel high-grade stenosis most pronounced at L4-5 where there is very severe canal stenosis (places patient at high risk for cauda equina syndrome). Ortho spine consulted; patient to undergo lumbar decompression and fusion L4-L5 with decompression L2-L3, L3-L4 w/ Dr. Simpson today. Continue gabapentin/steroids/PRN pain control. Possible Chronic UPJ Obstruction: Noted on CT of the lumbar spine. UA unremarkable, kidney function WNL. Could consider CTAP if patient develops symptoms. Other Chronic Medical Conditions: HTN/HLD/Depression -> Continue home medications for the specific conditions. DVT Prophylaxis: SQ Heparin Code Status: FULL CODE PCP: Emily Zamora DO Disposition: PT/OT recommending rehab placement - on board. Referral to [facility] pending. Patient seen in collaboration with Dr. Jean. Please see addendum. I spent a total of 45 minutes coordinating, documenting, and providing care for this patient excluding time spent in the performance of separately billed services. This included personally reviewing all current laboratories and imaging studies, medical reconciliation, outpatient chart review and discussion with specialists. This chart was completed in part utilizing Speech Voice Recognition Software. Grammatical errors, random word insertions, pronoun errors, and incomplete sentences are an occasional consequence of this system due to software limitations, ambient noise, and hardware issues. Any formal questions or con cerns about the content, text, or information contained within the body of this dictation should be directly addressed to the provider for clarification. Admission and Anticipated Discharge Date Admission Date: September 28, 2024 Supervising Physician Co-Signing Physician Notes Pt was seen and examined by myself, Roopa Jean MD on the day of service. Care was coordinated with Rosalie Flores PA-C/DAVID. Pt was seen with family at bedside pre-op. Was concerned about not moving her bowels for the past 3 days. Also noting saddle anesthesia, states she does not have the urge to have a bowel movement currently. Exam remains unchanged from previous days. Anticipating OR today, uncertain time. Consider KUB post op to eval for stool retention Otherwise as above. I spent a total [id number] coordinating, documenting, and providing care for this patient excluding time spent in the performance of separately billed services Subjective Patient seen and examined at bedside this morning. She is scheduled to undergo lumbar decompression and fusion L4-L5 with decompression L2-L3, L3-L4 with Dr. Simpson later this afternoon. Her daughter, Nica, was present at bedside - she reports that the patient has not had a bowel movement since Wednesday. Patient denies any abdominal pain or bloating. We discussed this in depth and decided to pursue an enema postoperatively and will get a KUB in the AM to assess her stool burden. Review of Systems Review of Systems: At least ten systems reviewed and negative, except as noted in the subjective. Physical Exam Physical Exam: General: WD/WN, vitals as above, NAD, sitting up in bed, very pleasant, conversing appropriately. A+Ox3, euthymic affect. HEENT: Normocephalic, atraumatic. Conjunctivae normal, anicteric sclerae. External ear and nose normal, oropharynx normal. Respiratory: Normal respiratory effort, lungs clear to auscultation, no wheeze/rales/rhonchi. No accessory muscle use. Cardiovascular: Regular rate, rhythm, normal peripheral pulses, no BLE edema. Vessels: No JVD. Abdomen/GI: Active bowel sounds, soft, nondistended, nontender to palpation in all quadrants. Extremities/Musculoskeletal: No cyanosis or clubbing, touch sensation intact in BLE, able to move all extremities. Neurologic: No overt focal deficits, CN's II-XI not formally tested but appear grossly intact bilaterally. Skin: No rashes, normal color, warm/dry. Results & Data Results & Data Vital Signs (Past 12 Hours) Vital Signs Temp Pulse Resp BP Pulse Ox O2 Del Method 10/02/24 08:21 36.6 C 58 L 18 157/77 H 95 Room Air Laboratory Results Short CBC 10/02/24 Range/Units 06:53 WBC 8.19 (4.8-10.8) K/ul Hgb 13.5 (12.0-16.0) g/dl Hct 41.5 (37.0-47.0) % Plt Count 178 (130-400) K/uL BMP 10/02/24 06:53 Sodium 141 Potassium 4.7 Chloride 101 Carbon Dioxide 34 H BUN 27 H Creatinine 0.77 Glucose 131 H Calcium 9.6
[2024-10-02] MEDS ORDERED: fentaNYL citrate PF 100 MCG/2 ML VIAL ONE (15:03)
[2024-10-02] MEDS ORDERED: ROCURONIUM BROMIDE 10 MG/ML 5 ML VIAL IV ONE ×2 (15:04→16:44)
[2024-10-02] MEDS ORDERED: PROPOFOL IV EMULSION 10 MG/ML 20 ML VIAL IV ONE (15:06)
[2024-10-02] MEDS ORDERED: GLYCOPYRROLATE 0.2 MG/ML VIAL ONE (15:28)
--- NOTE | 2024-10-02 15:40 | History & Physical Bridge Note ---
Date of Service October 02, 2024 History & Physical Bridge Note I have examined the patient, reviewed the History & Physical and in the interval since the performance of the History & Physical I have noted the following changes of clinical significance: no changes noted lumbar decompression L2-L5 with fusion L4-L5
[2024-10-02] MEDS ORDERED: fentaNYL citrate PF 100 MCG/2 ML VIAL IV PRN (16:02)
[2024-10-02] MEDS ORDERED: ATROPINE SULFATE 0.1 MG/ML 10ML SYR IV PRN (16:02)
[2024-10-02] MEDS ORDERED: HYDROmorphone INJ 1 MG/ML SYRINGE IV PRN ×2 (16:02→19:52)
[2024-10-02] MEDS ORDERED: ePHEDrine sulfate 50 MG/ML AMP IV PRN (16:02)
[2024-10-02] MEDS ORDERED: PROMETHAZINE HCL 6.25 MG in SODIUM CHLORIDE 0.9% 50 ML IV PRN (16:02)
[2024-10-02] MEDS ORDERED: ONDANSETRON INJ 2 MG/ML 2 ML VIAL IV PRN ×2 (16:02→19:52)
--- NOTE | 2024-10-02 16:02 | Anesthesiology Consultation ---
Date of Service October 02, 2024 Assessment & Plan Chart Review Chart Review: Acceptable Risk for Surgery and Patient NOT seen in Pre Admission Testing Consults Requested none ASA ASA2 Proposed Anesthesia Anesthesia Type: General Risk / Benefits Reviewed With: PT / POA / Parent / Guardian, Accepts Plan and Informed Consent Obtained History Surgery Operation Date: 10/02/24 07:00 Proposed Procedures p L2-L5 Decompresion, Possible L4-L5 Fusion - Nathan Simpson, Height/Weight Height: 5 ft 7 in Weight: 96.479 kg Allergies Allergy/AdvReac Type Severity Reaction Status Date / Time lisinopril Allergy Severe Mouth Unverified 10/02/24 14:56 Swelling JEANNETTE Inhibitors Allergy Intermediate angioedema Unverified 10/02/24 14:56 bee venom protein (honey bee) Allergy Intermediate hives Unverified 10/02/24 14:56 Sulfa (Sulfonamide Allergy Intermediate rash Unverified 10/02/24 14:56 Antibiotics) Medications Home Medications Medication Instructions Recorded Confirmed Last Taken acetaminophen 650 mg 650 mg PO Q12H 02/25/19 02/25/19 Unknown tablet,extended release (Tylenol Arthritis Pain) alendronate 70 mg tablet (Fosamax) 70 mg PO WK 02/25/19 02/25/19 Unknown aspirin 81 mg tablet,delayed 81 mg PO DAILY 02/25/19 02/25/19 Unknown release (Aspir-) atenolol 25 mg tablet 25 mg PO DAILY 02/25/19 02/25/19 Unknown calcium 600 mg (as 1 cap PO DAILY 02/25/19 02/25/19 Unknown carbonate)-vitamin D3 5 mcg (200 unit) capsule (Calcium 600 + D(3)) clonidine HCl 0.1 mg tablet 0.5 tab PO BID 02/25/19 02/25/19 Unknown coenzyme Q10 100 mg capsule 100 mg PO DAILY 02/25/19 02/25/19 Unknown (CoQ-10) diphenhydramine HCl 25 mg capsule 50 mg PO Q4 PRN ITCHING/HIVES 02/25/19 02/25/19 Unknown (Benadryl) epinephrine 0.3 mg/0.3 mL 0.3 mg IM UD PRN LIFE THREATENING 02/25/19 02/25/19 Unknown injection, auto-injector (EpiPen ALLERGIES 2-Qamar) glucosamine 125 mg-chondroitn 100 0 mg PO BID 02/25/19 02/25/19 Unknown mg-cartilg 40 mg-colagn 10 mg tablet hydrochlorothiazide 25 mg tablet 12.5 mg PO DAILY 02/25/19 02/25/19 Unknown meloxicam 7.5 mg tablet 7.5 mg PO DAILY 02/25/19 02/25/19 Unknown methylprednisolone 4 mg tablets in See Rx Instructions .Route 02/25/19 Unknown a dose pack ([place] (Qamar)) .COMPLEX #21 ea multivitamin 1 tab PO DAILY 02/25/19 02/25/19 Unknown omeprazole 20 mg capsule,delayed 20 mg PO DAILY 02/25/19 02/25/19 Unknown release sertraline 100 mg tablet 100 mg PO DAILY 02/25/19 02/25/19 Unknown simvastatin 40 mg tablet (Zocor) 40 mg PO DAILY 02/25/19 02/25/19 Unknown tolterodine 1 mg tablet (Detrol) 1 mg PO BID 02/25/19 02/25/19 Unknown vitamin E 268 mg (400 unit) capsule 400 unit PO DAILY 02/25/19 02/25/19 Unknown acetaminophen 650 mg 650 mg PO HS 09/28/24 09/28/24 09/27/24 tablet,extended release ascorbic acid (vitamin C) 1,000 mg 1 g PO HS 09/28/24 09/28/24 09/27/24 tablet (Vitamin C) aspirin 81 mg tablet,delayed 81 mg PO HS 09/28/24 09/28/24 09/27/24 release atenolol 25 mg tablet 25 mg PO QAM 09/28/24 09/28/24 09/28/24 calcium 600 mg (as 1 cap PO HS 09/28/24 09/28/24 09/27/24 carbonate)-vitamin D3 5 mcg (200 unit) capsule (Calcium 600 + D(3)) coenzyme Q10 100 mg capsule 100 mg PO HS 09/28/24 09/28/24 09/27/24 (CoQ-10) cranberry fruit 450 mg tablet 450 mg PO HS 09/28/24 09/28/24 09/27/24 (cranberry) glucosamine sulf dipot 1 cap PO HS 09/28/24 09/28/24 09/27/24 chlr,msm,chond 550 mg-C 30 mg-keila 1 mg capsule (Glucosamine Chondroitin) hydrochlorothiazide 12.5 mg tablet 12.5 mg PO QAM 09/28/24 09/28/24 09/28/24 meloxicam 7.5 mg tablet 7.5 mg PO DAILY PRN Severe Pain 09/28/24 09/28/24 09/28/24 (Scale Score 7-10) multivitamin 1 tab PO HS 09/28/24 09/28/24 09/27/24 omeprazole 20 mg capsule,delayed 20 mg PO DAILYBB 09/28/24 09/28/24 09/28/24 release rosuvastatin 5 mg tablet 5 mg PO QAM 09/28/24 09/28/24 09/28/24 sertraline 100 mg tablet 150 mg PO QAM 09/28/24 09/28/24 09/28/24 vibegron 75 mg tablet (Gemtesa) 75 mg PO DAILY 09/28/24 09/28/24 09/28/24 vitamin E 268 mg (400 unit) capsule 268 mg PO HS 09/28/24 09/28/24 09/27/24 Active Medications Generic Name Dose Route Start Last Admin Trade Name Todd PRN Reason Stop Dose Admin Acetaminophen 1,000 mg 09/28/24 21:00 10/02/24 14:26 Acetaminophen 500 Mg Tab PO 10/28/24 20:59 1,000 mg TID CHARLES Administration Aspirin 81 mg 09/28/24 21:00 10/01/24 20:39 Aspirin 81 Mg Ectab PO 10/28/24 20:59 81 mg HS CHARLES Administration Atenolol 25 mg 09/29/24 09:00 10/02/24 10:02 Atenolol 25 Mg Tablet PO 10/29/24 08:59 25 mg QAM CHARLES Administration Calcium/Vitamin D 1 tab 09/28/24 21:00 10/01/24 20:39 Calcium 600mg + Vit D 400 Iu Tab PO 10/28/24 20:59 1 tab HS CHARLES Administration Dexamethasone 4 mg 09/28/24 21:00 10/02/24 07:47 Dexamethasone 4 Mg Tab PO 10/28/24 20:59 4 mg BID CHARLES Administration Docusate Sodium 100 mg 09/29/24 11:45 10/02/24 07:44 Docusate Sodium 100 Mg Cap PO 10/29/24 11:44 100 mg BID CHARLES Administration Gabapentin 100 mg 09/28/24 21:00 10/02/24 14:41 Gabapentin 100 Mg Cap PO 10/28/24 20:59 100 mg TID CHARLES Administration Heparin Sodium (Porcine) 5,000 units 09/29/24 21:00 10/02/24 09:14 Heparin Sod 5,000 Unit/0.5 Ml Vial SQ 10/29/24 20:59 Not Given Q12 CHARLES Magnesium Hydroxide 30 ml 09/28/24 20:41 10/01/24 20:37 Magnesium Hydroxide Susp 30 Ml Udc PO 10/28/24 20:40 30 ml Q6H PRN Administration Constipation Pantoprazole Sodium 40 mg 09/29/24 06:30 10/02/24 05:20 Pantoprazole 40 Mg Tab PO 10/29/24 06:29 40 mg DAILYBB CHARLES Administration Rosuvastatin Calcium 5 mg 09/29/24 09:00 10/02/24 07:46 Rosuvastatin Calcium 5 Mg Tab PO 10/29/24 08:59 5 mg QAM CHARLES Administration Sertraline HCl 150 mg 09/29/24 09:00 10/02/24 07:46 Sertraline Hcl 50 Mg Tablet PO 10/29/24 08:59 150 mg QAM CHARLES Administration Vibegron 75 mg 09/29/24 09:00 10/02/24 07:45 Vibegron 75 Mg Tab PO 10/29/24 08:59 75 mg DAILY CHARLES Administration NPO Date Last Intake of Fluids: 10/02/24 Time Last Intake of Fluids: 14:30 Last Intake of Fluids Comment: sip of water with meds Date Last Intake of Solids: 10/01/24 Time Last Intake of Solids: 23:59 Exercise / Class Metabolic Activity II 4-5 Yardwork/Stairs/Walk up hill Past Family History Family History (System 10/02/24 @ 07:22 by Regi Montiel) Other Cancer Heart disease Hypertension Past Surgical History Surgical History (System 10/02/24 @ 07:22 by Regi Montiel) No pertinent past surgical history Past Anesthesia History No Hx of Anesthesia Complications and No Family Hx of Anesthesia Complications History of PONV No Hx of PONV and No Hx of Motion Sickness Social History Smoking Status: Never smoker Do You Dip or Chew Tobacco: No Hx Alcohol Use: No Hx Substance Use: No Physical Exam Vital Signs Last Vital Signs Temp 36.6 C 10/02/24 14:53 Pulse 57 L 10/02/24 14:53 Resp 20 10/02/24 14:53 BP 145/72 H 10/02/24 14:53 Pulse Ox 93 10/02/24 14:53 O2 Del Method Room Air 10/02/24 14:53 O2 Flow Rate 3 09/28/24 19:00 ENMT Mouth: no dentition abnormality Thyromental Distance: > or= 3.5 Finger Breadths Mallampati Class: II Neck normal visual inspection and + limited neck extension Respiratory normal respiratory effort Auscultation: lungs clear to auscultation bilaterally Cardiovascular Rate/Rhythm: regular rate and regular rhythm Psychiatric Orientation: alert Testing Laboratory Results 10/02/24 06:53 10/02/24 06:53 Urine Color Yellow 09/28/24 17:12 Urine Appearance Clear (Clear) 09/28/24 17:12 Urine pH 6.5 (4.5-7.5) 09/28/24 17:12 Ur Specific [place] 1.012 (1.000-1.030) 09/28/24 17:12 Urine Protein Negative (Negative) 09/28/24 17:12 Urine Glucose (UA) Negative (Negative) 09/28/24 17:12 Urine Ketones Negative (Negative) 09/28/24 17:12 Urine Nitrite Negative (Negative) 09/28/24 17:12 Ur Leukocyte Esterase Negative (Negative) 09/28/24 17:12
[2024-10-02] MEDS: ceFAZolin 2000MG 2,000 MG/15 ML SYR IV STA (16:30)
[2024-10-02] MEDS ORDERED: ONDANSETRON INJ 2 MG/ML 2 ML VIAL ONE (16:36)
[2024-10-02] MEDS ORDERED: DEXAMETHASONE SOD INJ 4 MG/ML VIAL ONE (16:36)
[2024-10-02] MEDS ORDERED: SOD PHOSPHATE/SOD BIPHOSPHATE ENEMA 132 ML BTL PR PRN ×2 (17:15→19:52)
[2024-10-02] MEDS: BUPIVACAINE/EPINEPHRINE 0.25% 1:200,000 30 ML VIAL ONE (18:14)
[2024-10-02] MEDS: ceFAZolin 2,000 MG/15 ML IV PUSH IV ONE (18:15)
[2024-10-02] MEDS: ceFAZolin 330 MG/ML 1 GM VIAL ONE (18:31)
[2024-10-02] MEDS: FLOSEAL HEMOSTATIC MATRIX 10ML TOP ONE (18:32)
[2024-10-02] MEDS ORDERED: NEOSTIGMINE METHYLSULFATE 1 MG/ML 10ML VIAL ONE (18:48)
--- NOTE | 2024-10-02 18:51 | Operative Report ---
Post Operative Report Pre & Post Diagnosis Operation Date: 10/02/24 07:00 Pre-Op Diagnosis: Spinal stenosis of lumbar region with neurogenic claudication Spondylolisthesis L4-L5 Post-Op Diagnosis: Same I identified the patient and participated in the time-out.: Yes Procedure Operation Date: 10/02/24 07:00 Actual Procedures #1 lumbar decompression with bilateral medial facetectomies and foraminotomies L2-L3, L3-L4 and L4-L5. #2 posterior spinal fusion L4-5. #3 placed posterior instrumentation L4-5. #4 interbody fusion L4-L5. #5 placement of Spira 14 x 26 mm x 2 at L4-L5. #6 placement locally harvested morselized autograft and posterior gutters. #7 placement is collagen sponge and Koros in the posterior lateral gutters and os design in the interbody spaces. #8 application of versa wrap of the exposed dura. Surgeon Nathan Simpson, DO Hospice Administrator None Estimated Blood Loss 200 Findings See Below The patient is 5 foot 7 weighing over 96 kg with a BMI in excess of 33. Patient's body was did contribute to significant technical difficulty with positioning exposure and the procedure itself and at least 50% increased operative time. Specimens None Indications This is a 78-year-old female the presents above-mentioned diagnosis after failing course of nonoperative care and having marked decline ability to stand and ambulate with lower extremity weakness she is here for surgical invention. Description of Procedure Patient was met with identified informed consent obtained. Patient was then taken to the operative suite underwent intubation placed in a prone position on the Keenan table atop the Chicho frame. All bony promises well-padded eyes inspected to ensure no external pressure placed upon them. This point the lumbar spine was prepped and draped in normal sterile fashion. Sharp dissection with the assistance of Bovie cautery was performed down to and exposing the lamina of L2-L3-L4 and the transverse processes of L4-5 bilaterally. Then performed complete laminectomy of L4 with bilateral medial facetectomies and foraminotomies addressing severe subarticular and foraminal stenosis. Then performed a midline decompression of L3 with bilateral medial facetectomies and foraminotomies followed by L2 with bilateral medial facetectomies and foraminotomies addressing all spinal stenosis as well as epidural lipomatosis. Pedicle screws in place in L4-L5 bilaterally with assistance of fluoroscopy and appropriate size ewa placed. By way of transforaminal approach on the right a discectomy of L 4 L5 was performed endplates corrected to subcortical mean bone and a 14 x 26 mm spiral cage filled with os design tapped into position. Then proceeded to the left transforaminal region at L4-5. Again discectomy performed endplates guarded to subcortical bleeding bone and a second 14 x 26 mm Spira cage filled with os designed tapped into position. Rods then compressed locked in final position bilaterally. The transverse processes of L4-5 burred to subcortical bleeding bone. Infuse collagen sponge, with Koros and local autograft placed in the posterior gutters. Versa wrap placed over the exposed dura. 15 round CHELSIE drain inserted. The incision was then closed with 1 Vicryl fascia 2-0 Vicryl subcutaneously and 4 Monocryl for final skin closure. Steri- Strips sterile dressing placed. Patient waken taken PACU stable condition. Please note spinal cord monitoring was utilized at the procedure no changes noted. I attest to the content of the Intraoperative Record and any orders documented therein. Any exceptions are noted below.
[2024-10-02] MEDS ORDERED: LORazepam 2 MG/1 ML VIAL IV PRN (19:52)
[2024-10-02] MEDS ORDERED: diphenhydrAMINE Capsule 25 MG CAP PO PRN (19:52)
[2024-10-02] MEDS ORDERED: DO NOT ADMINISTER FLU VACCINE PRN (19:52)
[2024-10-02] MEDS ORDERED: DO NOT ADMINISTER PNEUMOCOCCAL VACCINE PRN (19:52)
[2024-10-02] MEDS ORDERED: NALOXONE HCL 0.4 MG/1 ML VIAL/CARP IV PRN (19:52)
[2024-10-02] MEDS ORDERED: hydrOXYzine HCl 25 MG TAB PO PRN (19:52)
[2024-10-02] MEDS ORDERED: ACETAMINOPHEN 1,000 MG/100 ML VIAL IV PRN (19:52)
[2024-10-02] MEDS ORDERED: FAMOTIDINE 20 MG TAB PO PRN (19:52)
[2024-10-02] MEDS ORDERED: LORazepam 0.5 MG TAB PO PRN (19:52)
[2024-10-02] MEDS ORDERED: METOCLOPRAMIDE HCL INJ 5 MG/ML 2 ML VIAL IV PRN (19:52)
[2024-10-02] MEDS ORDERED: ALUMINUM/MAGNESIUM SUSP 30 ML UDC PO PRN (19:52)
[2024-10-02] MEDS ORDERED: HYDROmorphone INJ 0.5 MG/0.5 ML SYR IV PRN (19:52)
[2024-10-02] MEDS ORDERED: PROMETHAZINE 12.5 MG/50.5 ML BAG IV PRN (19:52)
[2024-10-02] MEDS ORDERED: MAGNESIUM HYDROXIDE SUSP 30 ML UDC PO PRN (19:52)
[2024-10-02] MEDS: DOCUSATE SODIUM/SENNA 50/8.6MG TAB PO SCH (20:22)
[2024-10-02] MEDS: traMADol HCL 50 MG TABLET PO PRN (22:08)
[2024-10-03] MEDS: ceFAZolin 2000MG 2,000 MG/15 ML SYR IV SCH (00:46)
[2024-10-03] MEDS: ONDANSETRON 4 MG OD TAB PO PRN (02:26)
[2024-10-03] MEDS: POLYETHYLENE (MIRALAX) 17 GM PACK PO SCH (05:50)
--- NOTE | 2024-10-03 07:43 | Fluoroscopy Report ---
FL lumbar spine 2-3V CLINICAL HISTORY: L2-L5 DECOMP/FUSION COMPARISON STUDY: Lumbar spine MRI September 28, 2024. FLUOROSCOPY TIME: 20 seconds. Ka,r: 17.84 mGy FLUOROSCOPIC IMAGES: 2 FINDINGS: Fluoroscopy was provided during L2-L5 decompression with L4-L5 discectomy with interbody sp acer placement and bilateral pedicle screw placement. The hardware is intact. There are no unexpected radiopaque foreign bodies. IMPRESSION: Fluoroscopy provided during L2-L5 decompression L4-L5 discectomy and fusion. ACT 112: Negative or not required by law. Electronically signed by: Ramsey Llanes M.D. 10/03/2024 7:41 AM
--- NOTE | 2024-10-03 08:22 | Hospitalist Progress Note ---
Date of Service October 03, 2024 Assessment & Plan (1) Spinal stenosis of lumbar region with neurogenic claudication: (2) S/P lumbar spine operation: Plan Betty Feldman is an 78-year-old female with known severe degenerative spine disease and severe spinal stenosis of the lumbar spine who presented to the ED on 09/28/2024 with intractable lower back pain and increasing ambulatory dysfunction in addition to radicular/neurogenic claudication symptoms. Additional PMHx includes HLD, prediabetes (Hgb A1c 5.9% in 05/2024), JOSE LUIS [CPAP intolerant], HTN, GERD, stress incontinence, osteoarthritis, sensorineural hearing loss of both ears, LEO/depression Lumbar Spinal Stenosis, Neurogenic Claudication: Lumbar spine CT -> Extensive degenerative changes with severe canal and foraminal stenosis (L>R) at L3-L4 and L4-L5, severe L bony foraminal encroachment/nerve impingement at L5-S1. Lumbar spine MRI -> Multilevel high-grade stenosis most pronounced at L4-5 where there is very severe canal stenosis (places patient at high risk for cauda equ sujata syndrome). Ortho spine consulted; patient is now postop day #1 s/p lumbar decompression and fusion L4-L5 with decompression L2-L3, L3-L4 w/ Dr. Simpson. Saturating well on RA, advance YESSENIA. Hgb stable. Leukocytosis today likely reactive 2/2 pain, phos slightly bumped -> monitor AM labs. Continue gabapentin/PRN pain control. On IV Decadron per ortho spine, prior po Decadron on hold. Possible Chronic Right UPJ Obstruction: Incidentally noted on CT of the lumbar spine. UA unremarkable, kidney function WNL. Could consider CTAP if patient develops symptoms. Constipation: Patient w/ concerns of constipation - reports no BM since Wednesday. KUB this morning was unremarkable. Continue scheduled bowel regimen, PRN Fleet enema. Reassess in AM. Other Chronic Medical Conditions: * HTN -> HCTZ on hold, continue atenolol. BP remains stable. * HLD, Depression/LEO, GERD, stress incontinence -> Continue home medications for these specific conditions. DVT Prophylaxis: SCDs/TEDs postoperatively per ortho spine. Continue ASA, previous SQ heparin stopped. Code Status: FULL CODE PCP: Emily Zamora DO Disposition: PT/OT recommending rehab placement - CM on board. Referral to [facility] pending (patient's 1st choice). Psychiatric can accept if [facility] cannot. * Updated the patient's daughter, Nica, over the phone this afternoon regarding the plan of care as per above - which she was agreeable with. All questions were answered. Patient seen in collaboration with Dr. Jean. Please see addendum. I spent a total of 40 minutes coordinating, documenting, and providing care for this patient excluding time spent in the performance of separately billed services. This included personally reviewing all current laboratories and imaging studies, medical reconciliation, outpatient chart review and discussion with specialists. This chart was completed in part utilizing Speech Voice Recognition Software. Grammatical errors, random word insertions, pronoun errors, and incomplete sentences are an occasional consequence of this system due to software limitations, ambient noise, and hardware issues. Any formal questions or concerns about the content, text, or information contained within the body of this dictation should be directly addressed to the provider for clarification. Admission and Anticipated Discharge Date Admission Date: September 28, 2024 Supervising Physician Co-Signing Physician Notes Pt was seen and examined by myself, Roopa Jean MD on the day of service. Care was coordinated with Rosalie Flores PA-C. 78yoF seen on postop Day 1. Sitting up in bed comfortably eating lunch. Denied acute concerns at that time. Bandage over spine, breath sounds clear, HR regular. Pain controlled. Dispo, PT/OT and DVT prophylaxis recs per ortho spine. monitor postop H/H. Otherwise as above. I spent a total [id number] coordinating, documenting, and providing care for this patient excluding time spent in the performance of separately billed services Subjective Patient seen and examined at bedside this morning. She underwent lumbar deco mpression and fusion L4-L5 with decompression L2-L3, L3-L4 with Dr. Simpson yesterday. Reports surgery went well and that her pain is under control. Notes improvement in her BLE neurogenic claudications symptoms in addition to her saddle anesthesia. She is still concerned that she hasn't had a bowel movement since Wednesday. Still awaiting the results of her KUB. She is already on scheduled MiraLAX every [address] Simpson - we discussed this and plan to advance her diet. If no bowel movement by later this afternoon/evening, patient would like to try an enema. She reports that she has not passed much gas postoperatively. She is going to have her surgical bandaging changed this morning as she has some minor bloody drainage from the inferior portion of her surgical site. Review of Systems Review of Systems: At least ten systems reviewed and negative, except as noted in the subjective section. Physical Exam Physical Exam: General: WD/WN, NAD, sitting up on the side of the bed, very pleasant, conversing appropriately. A+Ox3, euthymic affect. HEENT: Normocephalic, atraumatic. Conjunctivae normal, anicteric sclerae. External ear and nose normal, oropharynx normal. Respiratory: Normal respiratory effort, lungs clear to auscultation, no wheeze/rales/rhonchi. No accessory muscle use. Cardiovascular: Regular rate, rhythm, normal peripheral pulses, no BLE edema. Vessels: No JVD. Abdomen/GI: Active bowel sounds, soft, nondistended, nontender to palpation in all quadrants. : Ayers catheter intact and draining clear, yellow urine without issue. Extremities/Musculoskeletal: Touch sensation intact in BLE, surgical dressing w ith some minor bloody drainage. Neurologic: No overt focal deficits, CN's II-XI not formally tested but appear grossly intact bilaterally. Skin: No rashes, normal color, warm/dry. CHELSIE drain x 1 intact and draining serosanguineous output appropriately. Results & Data Results & Data Vital Signs (Past 12 Hours) Vital Signs Temp Pulse Resp BP Pulse Ox O2 Del Method O2 Flow Rate 10/03/24 07:45 36.5 C 72 18 147/72 H 93 Room Air 10/03/24 06:11 94 Room Air 10/03/24 02:22 36.7 C 72 20 146/81 H 96 Nasal Cannula 2 10/02/24 22:45 36.4 C L 62 20 108/66 97 Nasal Cannula 2 10/02/24 21:45 36.4 C L 67 20 106/54 L 100 Nasal Cannula 2 10/02/24 20:46 95 Nasal Cannula 2 10/02/24 20:45 36.4 C L 64 20 108/65 82 L Room Air 10/02/24 20:23 36.4 C L 65 16 123/72 94 Room Air Laboratory Results Short CBC 10/03/24 10/03/24 Range/Units 08:06 09:38 WBC Cancelled 15.06 H Hgb Cancelled 12.6 Hct Cancelled 38.6 Plt Count Cancelled 191 BMP 10/03/24 10/03/24 08:06 09:38 Sodium TNP 135 L Potassium TNP 4.7 Chloride 98 Carbon Dioxide 31 BUN 24 H Creatinine 0.80 Glucose 131 H Calcium 8.6 Diagnostic Findings KUB X-Ray 10/03/24 07:00 KUB HISTORY: Constipation COMPARISON: CT lumbar spine 09/28/2024 FINDINGS: Nonobstructive bowel gas pattern. Colonic stool volume is mild and within normal limits. No renal calculi. No ureteral calculi. No pneumoperitoneum or pneumatosis. Postoperative changes of the lower lumbar spine with overlying surgical drainage catheter. No fracture. IMPRESSION: 1. Nonobstructive bowel gas pattern. 2. No radiographic evidence of constipation. ACT 112: Negative or not required by law. The above report was generated using voice recognition software. It may contain grammatical, syntax or spelling errors. Electronically signed by: Luis Rome M.D. 10/03/2024 9:31 AM
[2024-10-03] MEDS ORDERED: POLYETHYLENE (MIRALAX) 17 GM PACK PO SCH (09:00)
[2024-10-03 09:14] LABS: Blood Urea Nitrogen 24 mg/dl (6-23); Calcium 8.6 mg/dl (8.6-10.3); Carbon Dioxide 31 mmol/L (21-32); Chloride 98 mmol/L (98-107); Creatinine Clr Calc Pharmacy 66.9 ml/min; Glucose 131 mg/dl (70-99(Fasting)); Phosphorus 5.5 mg/dl (2.5-4.9)
--- NOTE | 2024-10-03 09:32 | XRay Report ---
KUB HISTORY: Constipation COMPARISON: CT lumbar spine 09/28/2024 FINDINGS: Nonobstructive bowel gas pattern. Colonic stool volume is mild and within normal limits. No renal calculi. No ureteral calculi. No pneumoperitoneum or pneumatosis. Postoperative changes of the lower lumbar spine with overlying surgical drainage catheter. No fracture. IMPRESSION: 1. Nonobstructive bowel gas pattern. 2. No radiographic evidence of constipation. ACT 112: Negative or not required by law. The above report was generated using voice recognition software. It may contain grammatical, syntax o r spelling errors. Electronically signed by: Luis Rome M.D. 10/03/2024 9:31 AM
[2024-10-03] MEDS: dexAMETHasone 6 MG in SYRINGE 0 ML IV SCH (09:39)
[2024-10-03 10:13] LABS: Hematocrit (blood only) 38.6 % (37.0-47.0); Hemoglobin 12.6 g/dl (12.0-16.0); Mean Corpuscular Hemoglobin 29.6 pg (25.0-34.0); Mean Corpuscular Hgb Conc 32.6 g/dL (32.0-36.0); Mean Corpuscular Volume 90.6 fL (80.0-100.0); Mean Platelet Volume 9.8 fL (9.4-12.4); Platelet Count 191 K/uL (130-400); RDW Coefficient of Variation 13.2 % (11.5-14.5); RDW Standard Deviation 43.5 fL (36.4-46.3); Red Blood Count 4.26 M/uL (4.20-5.40); White Blood Count 15.06 K/ul (4.8-10.8)
[2024-10-03] MEDS: oxyCODONE HCL IR 5 MG TAB (IMMEDIATE RELEASE) PO PRN (10:23)
--- NOTE | 2024-10-03 10:25 | Orthopedic Progress Note ---
Date of Service October 03, 2024 Assessment & Plan (1) Spinal stenosis of lumbar region with neurogenic claudication: Plan: At this time continue physical therapy monitor CHELSIE output and assess disposition rehab versus home. Admission and Anticipated Discharge Date Admission Date: September 28, 2024 Subjective Back pain controlled leg symptoms improved Physical Exam Physical Exam: Patient is up and ambulating. She is comfortable. Results & Data Vital Signs (Past 12 Hours) Vital Signs Temp Pulse Resp BP Pulse Ox O2 Del Method O2 Flow Rate 10/03/24 07:45 36.5 C 72 18 147/72 H 93 Room Air 10/03/24 06:11 94 Room Air 10/03/24 02:22 36.7 C 72 20 146/81 H 96 Nasal Cannula 2 10/02/24 22:45 36.4 C L 62 20 108/66 97 Nasal Cannula 2
[2024-10-03 10:28] LABS: Magnesium 2.1 mg/dl (1.7-2.4); Potassium 4.7 mmol/L (3.5-5.1)
[2024-10-03] MEDS: bisacodyL 10 MG SUPP PR PRN (14:50)
--- NOTE | 2024-10-04 08:01 | Hospitalist Progress Note ---
Date of Service October 04, 2024 Assessment & Plan (1) Spinal stenosis of lumbar region with neurogenic claudication: (2) S/P lumbar spine operation: Plan Betty Feldman is an 78-year-old female with known severe degenerative spine disease and severe spinal stenosis of the lumbar spine who presented to the ED on 09/28/2024 with intractable lower back pain and increasing ambulatory dysfunction in addition to radicular/neurogenic claudication symptoms. Additional PMHx includes HLD, prediabetes (Hgb A1c 5.9% in 05/2024), JOSE LUIS [CPAP intolerant], HTN, GERD, stress incontinence, osteoarthritis, sensorineural hearing loss of both ears, LEO/depression Lumbar Spinal Stenosis, Neurogenic Claudication: Lumbar spine CT -> Extensive degenerative changes with severe canal and foraminal stenosis (L>R) at L3-L4 and L4-L5, severe L bony foraminal encroachment/nerve impingement at L5-S1. Lumbar spine MRI -> Multilevel high-grade stenosis most pronounced at L4-5 where there is very severe canal stenosis (places patient at high risk for cauda equ sujata syndrome). Ortho spine consulted; patient is now postop day #2 s/p lumbar decompression and fusion L4-L5 with decompression L2-L3, L3-L4 w/ Dr. Simpson. Saturating well on RA, tolerating diet without issue. Hgb remains stable. Leukocytosis resolved - was previously likely 2/2 pain. Continue gabapentin/PRN pain control. Continue IV Decadron per ortho spine, prior po Decadron now hold while IV form is given. Possible Chronic Right UPJ Obstruction: Incidentally noted on CT of the lumbar spine. UA unremarkable, kidney function WNL. Could consider CTAP if patient develops symptoms. Constipation -IMPROVED: Patient was previously complaining of constipation. Has had 2 BMs postoperatively w/ relief of her constipation. Additionally her KUB yesterday was unremarkable. Continue scheduled bowel regimen, PRN Fleet enema - continue to monitor. Other Chronic Medical Conditions: * HTN -> HCTZ on hold, continue atenolol. BP remains stable. * HLD, Depression/LEO, GERD, stress incontinence -> Continue home medications for these specific conditions. DVT Prophylaxis: SCDs/TEDs postoperatively per ortho spine. Continue ASA. Code Status: FULL CODE PCP: Emily Zamora DO Disposition: PT/OT recommending rehab placement --> Plan to discharge patient to [facility] tomorrow. * Patient's daughter, Nica, was updated over the phone this afternoon and all questions were answered. Patient seen in collaboration with Dr. Taylor. Please see addendum. I spent a total of 40 minutes coordinating, documenting, and providing care for this patient excluding time spent in the performance of separately billed services. This included personally reviewing all current laboratories and imaging studies, medical reconciliation, outpatient chart review and discussion with specialists. This chart was completed in part utilizing Speech Voice Recognition Software. Grammatical errors, random word insertions, pronoun errors, and incomplete sentences are an occasional consequence of this system due to software limitations, ambient noise, and hardware issues. Any formal questions or concerns about the content, text, or information contained within the body of this dictation should be directly addressed to the provider for clarification. Admission and Anticipated Discharge Date Admission Date: September 28, 2024 Supervising Physician Co-Signing Physician Notes I have seen and discussed the case with the collaborating advanced practitioner. I agree with the above PN. I have reviewed and confirmed the patients medical history, the findings on physical examination, and the patients diagnosis and treatment plan with Mark BURLESON and agree with the information documented. 78yoF seen on postop Day 2. Denied acute concerns at that time. Bandage over spine, breath sounds clear, HR regular. Pain controlled. likely dispo tomorrow I spent a total of 15 minutes coordinating, documenting, and providing care for this patient excluding time spent in the performance of separately billed services. All of the aforementioned completed outside of collaborating with the assigned advanced practitioner for a full treatment plan. Subjective Patient seen and examined this morning. Had her Ayers catheter removed already. Had 2 bowel movements since surgery. Reports that her pain is well controlled sitting up in bed. Mentions that she still has some numbness/tingling in her feet (which she had preoperatively 2/2 neuropathy) but otherwise her saddle anesthesia seems to have resolved. She was eating breakfast this morning without any issue. Review of Systems Review of Systems: At least ten systems reviewed and negative, except as noted in the subjective section. Physical Exam Physical Exam: General: WD/WN, NAD, sitting up in the bed, very pleasant, conversing appropriately. A+Ox3, euthymic affect. HEENT: Normocephalic, atraumatic. Conjunctivae normal, anicteric sclerae. External ear and nose normal, oropharynx normal. Respiratory: Normal respiratory effort, lungs clear to auscultation, no wheeze/rales/rhonchi. No accessory muscle use. Cardiovascular: Regular rate, rhythm, normal peripheral pulses, no BLE edema. Vessels: No JVD. Abdomen/GI: Active bowel sounds, soft, nondistended, nontender to palpation in all quadrants. Extremities/Musculoskeletal: Touch sensation intact in BLE, surgical dressing dry and intact. Neurologic: No overt focal deficits, CN's II-XI not formally tested but appear grossly intact bilaterally. Skin: No rashes, normal color, warm/dry. CHELSIE drain x 1 intact and draining serosanguineous output appropriately. Results & Data Results & Data Vital Signs (Past 12 Hours) Vital Signs Temp Pulse Resp BP Pulse Ox O2 Del Method 10/04/24 07:51 36.3 C L 72 18 126/74 96 Room Air Laboratory Results Short CBC 10/04/24 Range/Units 08:25 WBC 9.86 (4.8-10.8) K/ul Hgb 11.3 L (12.0-16.0) g/dl Hct 33.9 L (37.0-47.0) % Plt Count 157 (130-400) K/uL BMP 10/04/24 08:25 Sodium 138 Potassium 4.6 Chloride 98 Carbon Dioxide 33 H BUN 21 Creatinine 0.71 Glucose 133 H Calcium 8.8
--- NOTE | 2024-10-04 08:25 | Orthopedic Progress Note ---
Date of Service October 04, 2024 Assessment & Plan (1) Spinal stenosis of lumbar region with neurogenic claudication: Plan: At this time we will continue physical therapy and Occupational Therapy. She is a candidate for rehab. This would be reasonable perhaps even this week. Admission and Anticipated Discharge Date Admission Date: September 28, 2024 Subjective Patient's back pain is controlled. Leg pain improved. Still frequent certain with leg weakness with ambulation. Physical Exam Physical Exam: Patient peers very comfortable. Skin strength testing. Results & Data Vital Signs (Past 12 Hours) Vital Signs Temp Pulse Resp BP Pulse Ox O2 Del Method 10/04/24 07:51 36.3 C L 72 18 126/74 96 Room Air
[2024-10-04 09:18] LABS: Hematocrit (blood only) 33.9 % (37.0-47.0); Hemoglobin 11.3 g/dl (12.0-16.0); Mean Corpuscular Hgb Conc 33.3 g/dL (32.0-36.0); Mean Corpuscular Volume 89.9 fL (80.0-100.0); Mean Platelet Volume 10.1 fL (9.4-12.4); Platelet Count 157 K/uL (130-400); RDW Coefficient of Variation 13.1 % (11.5-14.5); Red Blood Count 3.77 M/uL (4.20-5.40); White Blood Count 9.86 K/ul (4.8-10.8)
[2024-10-04 09:55] LABS: BUN Creatinine Ratio 29.6 (10-20); Calcium 8.8 mg/dl (8.6-10.3); Creatinine Clr Calc Pharmacy 75.4 ml/min; Magnesium 2.2 mg/dl (1.7-2.4); Phosphorus 4.1 mg/dl (2.5-4.9); Potassium 4.6 mmol/L (3.5-5.1)
[2024-10-05] MEDS: ACETAMINOPHEN 500 MG TAB PO PRN (06:08)
[2024-10-05 07:15] LABS: Hematocrit (blood only) 29.9 % (37.0-47.0); Hemoglobin 9.7 g/dl (12.0-16.0); Mean Corpuscular Hemoglobin 29.5 pg (25.0-34.0); Mean Corpuscular Hgb Conc 32.4 g/dL (32.0-36.0); Mean Corpuscular Volume 90.9 fL (80.0-100.0); Platelet Count 146 K/uL (130-400); RDW Coefficient of Variation 13.2 % (11.5-14.5); RDW Standard Deviation 43.9 fL (36.4-46.3); Red Blood Count 3.29 M/uL (4.20-5.40); White Blood Count 8.74 K/ul (4.8-10.8)
[2024-10-05 07:29] LABS: BUN Creatinine Ratio 30.4 (10-20); Calcium 8.4 mg/dl (8.6-10.3); Creatinine Clr Calc Pharmacy 77.6 ml/min; Magnesium 2.3 mg/dl (1.7-2.4); Phosphorus 2.9 mg/dl (2.5-4.9); Potassium 4.2 mmol/L (3.5-5.1)
--- NOTE | 2024-10-05 10:13 | Discharge Summary ---
Discharge Summary Date of Service October 05, 2024 Principal Dx & Hospital Course #1 = Principal Diagnosis (1) Spinal stenosis of lumbar region with neurogenic claudication: (2) S/P lumbar spine operation: Plan Betty Feldman is an 78-year-old female with known severe degenerative spine disease and severe spinal stenosis of the lumbar spine who presented to the ED on 09/28/2024 with intractable lower back pain and increasing ambulatory dysfunction in addition to radicular/neurogenic claudication symptoms. Additional PMHx includes HLD, prediabetes (Hgb A1c 5.9% in 05/2024), JOSE LUIS [CPAP intolerant], HTN, GERD, stress incontinence, osteoarthritis, sensorineural hearing loss of both ears, LOE/depression and history of breast cancer. Lumbar Spinal Stenosis, Neurogenic Claudication: As per above, patient presented to the ED on 09/28/2024 with intractable lower back pain and increasing ambulatory dysfunction in addition to radicular/neurogenic claudication symptoms. Lumbar spine CT on admission revealed extensive degenerative changes with severe canal and foraminal stenosis (L>R) at L3-L4 and L4-L5, severe L bony foraminal encroachment/nerve impingement at L5-S1. Lumbar spine MRI on admission showed multilevel high-grade stenosis most pronounced at L4-5 where there is very severe canal stenosis (placed patient at high risk for cauda equina syndrome). Orthopedic spinal surgery was consulted and the patient underwent lumbar decompression and fusion L4-L5 with decompression L2-L3, L3-L4 with Dr. Simpson on 10/02/2024. Her hemoglobin and other lab work have remained stable postoperatively. She completed a course of Decadron while admitted - which was initially oral formulation on admission and then transitioned to IV formulation by Dr. Simpson. Continue PRN pain management at time of discharge; patient educated on the proper use of oral narcotics for moderate to severe pain. Possible Chronic Right UPJ Obstruction: Incidentally noted on CT of the lumbar spine. UA unremarkable, kidney function remained WNL. No further workup necessary at this time. Constipation - RESOLVED: Patient was previously complaining of constipation. KUB on 10/03/2024 was unremarkable - did not show any evidence of constipation or obstruction. She thankfully has had a few bowel movements postoperatively with significant relief of her constipation. Instructed patient to continue with a daily bowel regimen (especially when on narcotic pain meds) which was ordered for [facility]. Dysphagia - IMPROVED: Was alerted by nursing staff yesterday evening via TT that the patient was having difficulty swallowing food (particular meat) around dinner time. Patient endorsed that it felt as if the food was "getting stuck." She was transitioned to an easy to chew diet with significant improvement in her dysphagia. Discussed this situation with the patient's daughter, Nica, this morning - decision was made to her the patient seen by speech pathology prior to discharge in order to discuss any further diet recommendations. Other Chronic Medical Conditions: * HTN -> BP remained stable during admission, can continue both home BP meds at time of discharge. * HLD, Depression/LEO, GERD, stress incontinence -> Continue home medications for these specific conditions. PCP: Emily Zamora DO [[facility]] Disposition: Patient is being discharged to [facility] for rehabilitation services. Patient seen in collaboration with Dr. Taylor. Please see addendum. I spent a total of 55 minutes coordinating, documenting, and providing care for this patient excluding time spent in the performance of separately billed services. This included personally reviewing all current laboratories and imaging studies, medical reconciliation, outpatient chart review and discussion with specialists. This chart was completed in part utilizing Speech Voice Recognition Software. Grammatical errors, random word insertions, pronoun errors, and incomplete sentences are an occasional consequence of this system due to software limitations, ambient noise, and hardware issues. Any formal questions or concerns about the content, text, or information contained within the body of this dictation should be directly addressed to the provider for clarification. Notes For Next Care Provider Patient will need a PCP follow-up appointment within the next week. Medication Changes From Visit No home medication changes were made during this admission. Patient is being discharged with a prescription for po oxycodone to take PRN for mod-sev back pain. Admission HPI Per Admitting Provider Patient is an 78-year-old female who has known severe degenerative spine, degenerative disc disease and severe spinal stenosis. Underwent pain management lumbar spine injections on Wednesday for management of her chronic back pain. Since Wednesday she is feels as though her legs have been a bit "spongy" and has had increased issues with ambulation. Came to the emergency room today for evaluation due to her concerns that she may fall. In the emergency room laboratory studies were really unremarkable. CT of the lumbar spine confirms severe degenerative spine disease. Due to some of her issues with ambulation, high risk for falling at home and potentially worsening of her symptoms of the last few days after injection was referred to our service for further evaluation. Time my evaluation patient states her pain is really fairly well- controlled. She describes a neuropathy/radiculopathy type of symptomatology down her lower back and both legs. She confirms that she has had increasing difficulties with ambulation her last few days but really has been progressing over the last few months. Her daughter who is at the bedside also confirms this. She states that since June her ability to ambulate has really declined. She had been previously walking without any assistive device. Over the past several weeks has been using a cane and most recently using a cane and furniture walking through her house. Her symptoms do seem to have exacerbated since her injections on Wednesday. Also complaining of a little bit of a headache since her injection. Denies any fever or chills. No chest pain or palpitations. She denies any issues with her bowel or bladder. Several weeks ago had some constipation but that has since improved since starting some Benefiber. It seemed to start when she started the Gemtesa. She denies any real weakness in her leg is more of a radicular type symptoms and balance and gait disorder. Patient also states that she has some significant degenerative knee arthritis. Has been seen orthopedics for this and had several injections. This is not been helping with her ambulation. Family has been encouraging patient to seek surgical opinion for her severe spinal disease. She had initially been not too interested in pursuing any type of surgical intervention, however, she does now have an appointment with orthopedic spine surgery at [facility] on October 19. Admission Exam Per Admitting Provider Constitutional: Alert, nontoxic, no acute distress HEENT: Mucous membranes moist. Sclera clear Neck: Soft, no adenopathy Lungs: Clear to auscultation, decreased, no wheezes rales or rhonchi CV: S1-S2, regular Abdomen: Soft, nontender, nondistended Extremities: No significant edema Musculoskeletal: No significant pain to palpation over the lumbar spine or in the paravertebral lumbar musculature. Neuro: Strength in the lower extremity is adequate. Slight decrease strength in dorsiflexion of the right great toe when compared to the left Psych: Cooperative, normal mood Discharge Exam General: WD/WN, NAD, sitting up in the bed, very pleasant, conversing appropriately. Daughter at bedside. A+Ox3, euthymic affect. HEENT: Normocephalic, atraumatic. Conjunctivae normal, anicteric sclerae. External ear and nose normal, oropharynx normal. Respiratory: Normal respiratory effort, lungs clear to auscultation, no wheeze/rales/rhonchi. No accessory muscle use. Cardiovascular: Regular rate, rhythm, normal peripheral pulses, no BLE edema. Vessels: No JVD. Abdomen/GI: Active bowel sounds, soft, nondistended, nontender to palpation in all quadrants. Extremities/Musculoskeletal: Touch sensation intact in BLE, surgical dressing dry and intact. Neurologic: No overt focal deficits, CN's II-XI not formally tested but appear grossly intact bilaterally. Skin: No rashes, normal color, warm/dry. CHELSIE drain x 1 intact and draining serosanguineous output appropriately. Updated Medication List Medication Instructions Recorded Confirmed Type alendronate 70 mg tablet (Fosamax) 70 mg PO WK 02/25/19 10/03/24 History clonidine HCl 0.1 mg tablet 0.5 tab PO BID 02/25/19 10/03/24 History diphenhydramine HCl 25 mg capsule 50 mg PO Q4 PRN ITCHING/HIVES 02/25/19 10/03/24 History (Benadryl) epinephrine 0.3 mg/0.3 mL 0.3 mg IM UD PRN LIFE THREATENING 02/25/19 10/03/24 History injection, auto-injector (EpiPen ALLERGIES 2-Qamar) methylprednisolone 4 mg tablets in See Rx Instructions .Route 02/25/19 10/03/24 Rx a dose pack (Medrol (Qamar)) .COMPLEX #21 ea tolterodine 1 mg tablet (Detrol) 1 mg PO BID 02/25/19 10/03/24 History acetaminophen 650 mg 650 mg PO HS 09/28/24 10/03/24 History tablet,extended release ascorbic acid (vitamin C) 1,000 mg 1 g PO HS 09/28/24 10/03/24 History tablet (Vitamin C) aspirin 81 mg tablet,delayed 81 mg PO HS 09/28/24 10/03/24 History release atenolol 25 mg tablet 25 mg PO QAM 09/28/24 10/03/24 History calcium 600 mg (as 1 cap PO HS 09/28/24 10/03/24 History carbonate)-vitamin D3 5 mcg (200 unit) capsule (Calcium 600 + D(3)) coenzyme Q10 100 mg capsule 100 mg PO HS 09/28/24 10/03/24 History (CoQ-10) cranberry fruit 450 mg tablet 450 mg PO HS 09/28/24 10/03/24 History (cranberry) glucosamine sulf dipot 1 cap PO HS 09/28/24 10/03/24 History chlr,msm,chond 550 mg-C 30 mg-keila 1 mg capsule (Glucosamine Chondroitin) hydrochlorothiazide 12.5 mg tablet 12.5 mg PO QAM 09/28/24 10/03/24 History meloxicam 7.5 mg tablet 7.5 mg PO DAILY PRN Severe Pain 09/28/24 10/03/24 History (Scale Score 7-10) multivitamin 1 tab PO HS 09/28/24 10/03/24 History omeprazole 20 mg capsule,delayed 20 mg PO DAILYBB 09/28/24 10/03/24 History release rosuvastatin 5 mg tablet 5 mg PO QAM 09/28/24 10/03/24 History sertraline 100 mg tablet 150 mg PO QAM 09/28/24 10/03/24 History vibegron 75 mg tablet (Gemtesa) 75 mg PO DAILY 09/28/24 10/03/24 History vitamin E 268 mg (400 unit) capsule 268 mg PO HS 09/28/24 10/03/24 History Hospital Stay Data Consultations 09/29/24 11:27 Consult Orthopedic Spine Surgery Routine Procedures Performed Operation Date: 10/02/24 07:00 Actual Procedures p Lumbar decompression L2-L5, Lumbar Fusion L4-L5, Spinal Cord Monitoring(Not Applicable) - Nathan Simpson DO Diagnostic Imagining Performed 09/28/24 17:00 CT lumbar spine wo con Stat 09/28/24 19:10 MRI Lumbar Spine [MR lumbar spine wo con] Stat 10/02/24 FL lumbar spine 2-3V Routine Pending Results Patient Have Any Pending Studies at Discharge: No Discharge Instructions Given to Patient (Per Discharging Provider) ACTIVITY RECOMMENDATIONS: SELF CARE INSTRUCTIONS AFTER THORACIC/LUMBAR FUSIONS 1. You may walk to your tolerance. It is good exercise for your legs and back. Expect some back and intermittent leg aches and pains. 2. You may perform "counter-top" level activities (make a sandwich, jules with a project, etc.). 3. No bending or lifting of more than 10 pounds or back twisting of any nature (roll like a log when turning in bed). 4. You may ride in a car for 20-30 minutes at a time. No driving until after your first visit with your doctor. 5. Frequent changes of position and restricting sitting to 30 minutes at a time will help limit the amount of back spasms and stiffness you may experience. 6. You may discontinue the use of ambulatory aids (cane, crutches, etc.) once your strength and confidence allow. 7. You may solar photovoltaic installer the shower and let water strike your incision when you arrive home at least once daily. Do not take a tub bath, sit in a hot tub or go into a swimming pool until after your first recheck in the office. 8. You may resume previous diet. SPECIAL CARE INSTRUCTIONS: VERY IMPORTANT TO READ AND REVIEW A. Your surgical incision has been closed with a cosmetic suture under the skin that will dissolve in about 6 weeks. In 14 days, you can use a pair of clean scissors and cut the suture that is left outside of the skin at the ends of your incision. 1. The small skin tapes can be removed 7 days after surgery if they have not fallen off by that point. 2. You may keep the wound open to air as much as possible to promote healing after post-op day number 5 unless told otherwise by your doctor. 3. If you think the wound looks like it is becoming infected (redness or worsening drainage) and/or you are experiencing fever, chill or worsening back pain and muscle spasms, contact the office so that we may evaluate you as soon as possible. B. Complications are uncommon, but please contact us if you have any signs or symptoms of: 1. wound infection (fever higher than 102.5 degrees F, redness, separation of wound, drainage, or increasing pain from the incision) 2. blood clots in legs (pain, swelling, redness and warmth in legs) 3. urinary tract infection (fever higher than 102.5 degrees F, burning upon urination or increased frequency of urination) 4. nerve problems (inability to walk on your toes or heels, numbness, loss of bowel or bladder control) 5. any other symptoms that concern you C. Please call the office at if you have any concerns or questions about your operation or recovery. D. No smoking! Smoking drastically decreases the chance of a solid fusion. E. Do not take any anti-inflammatory medications (Indocin, Advil, Motrin, Aspirin, Naprosyn, etc.) as these may inhibit the chance of a solid fusion. Tylenol is okay to take for pain. MANAGING PAIN AFTER SPINAL SURGERY 1. Narcotic medication is intended for short-term use and will be provided for surgical pain. Surgical pain usually lasts for a period of 4-6 weeks. Narcotic medication includes Percocet, Vicodin, Darvocet, Tylenol #3 or Lortab. 2. Longer-term pain is more appropriately treated with non-narcotic medication such as Tylenol ES. 3. Muscle spasm is not appropriately treated with narcotics. Muscle relaxers such as Soma, Flexeril or Skelaxin can be used along with Tylenol ES. 4. Remember that we all live with some "aches and pains". This is not unusual or uncommon after an injury or as we get older. a. Back pain is expected and may include muscle spasms for 4 to 6 weeks after surgery. The pain should gradually improve. If the pain worsens for no apparent reason, please contact the office. b. Intermittent leg pain may also be experienced and should not be concerned about unless it worsens for no apparent reason. If so, please contact the office. 5. We will provide appropriate medication within the normal guidelines of their prescribed use. We will also be very cautious and aware of potential abuse and extended duration of patients' medication needs. a. Pain medications are for your comfort and to assist with sleep and rest so that the tissue can heal. They are not provided in order to return to normal activity and should not be used through the day. To do so or worsening pain at night can result from ongoing tissue damage and development of tolerance to the prescribed medicine. 6. Please allow 2-3 days to process refills. Prescriptions will not be mailed but must be picked up at the office. FOLLOW UP VISIT: Keep your scheduled follow-up appointment. Any questions, please call the office at . Total Time Total Time Spent Total Time Spent (In Minutes): 55
--- NOTE | 2024-10-05 11:06 | Orthopedic Progress Note ---
Date of Service October 05, 2024 Assessment & Plan (1) Spinal stenosis of lumbar region with neurogenic claudication: Plan: Betty is postoperative day 3 status post lumbar decompression and fusion. She is orthopedically stable for discharge. We will DC CHELSIE drain just prior to discharge. Continue with ambulation. Admission and Anticipated Discharge Date Admission Date: September 28, 2024 Subjective Betty is postoperative day 3 status post lumbar decompression and instrumented fusion. Pain is controlled. She is currently has a swallow eval pending. CHELSIE drain output last shift was 40 cc. In physical therapy yesterday ambulating roughly 60 feet. Currently awaiting discharge to [facility] once medically stable Review of Systems Review of Systems: All systems reviewed & are unremarkable except as noted in HPI & below Physical Exam Physical Exam: Sitting in a chair in no acute distress Family present Lumbar dressing is clean dry and intact with functioning CHELSIE drain Strength intact bilateral lower extremities
--- NOTE | 2024-10-05 14:50 | Hospitalist Progress Note ---
Date of Service October 05, 2024 Assessment & Plan (1) Spinal stenosis of lumbar region with neurogenic claudication: (2) S/P lumbar spine operation: (3) Acute blood loss anemia: Plan Betty Feldman is an 78-year-old female with known severe degenerative spine disease and severe spinal stenosis of the lumbar spine who presented to the ED on 09/28/2024 with intractable lower back pain and increasing ambulatory dysfunction in addition to radicular/neurogenic claudication symptoms. Additional PMHx includes HLD, prediabetes (Hgb A1c 5.9% in 05/2024), JOSE LUIS [CPAP intolerant], HTN, GERD, stress incontinence, osteoarthritis, sensorineural hearing loss of both ears, LEO/depression and history of breast cancer. Lumbar Spinal Stenosis, Neurogenic Claudication: As per above, patient presented to the ED on 09/28/2024 with intractable lower back pain and increasing ambulatory dysfunction in addition to radicular/neurogenic claudication symptoms. Lumbar spine CT on admission revealed extensive degenerative changes with severe canal and foraminal stenosis (L>R) at L3-L4 and L4-L5, severe L bony foraminal encroachment/nerve impingement at L5-S1. Lumbar spine MRI on admission showed multilevel high-grade stenosis most pronounced at L4-5 where there is very severe canal stenosis (placed patient at high risk for cauda equina syndrome). Orthopedic spinal surgery was consulted and the patient underwent lumbar decompression and fusion L4-L5 with decompression L2-L3, L3-L4 with Dr. Simpson on 10/02/2024. Pain remains well-controlled on PRN medications. Completed a course of Decadron - which was initially oral formulation and then transitioned to IV formulation by Dr. Simpson. Plan to discharge patient to [facility] tomorrow per discussion with CM and the patient's daughter, Nica. CHELSIE drain will be removed prior to discharge. Acute Blood Loss Anemia: Hgb 12.6 preoperatively --> 9.7 today. 200cc EBL during surgery per operative report. Dilutional component also likely contributing + 730cc CHELSIE drain output thus far. Continue to monitor Hgb and transfuse PRN for Hgb<7. Possible Chronic Right UPJ Obstruction: Incidentally noted on CT of the lumbar spine. UA unremarkable, kidney function remained WNL. No further workup necessary at this time. Constipation - RESOLVED: Patient was previously complaining of constipation. KUB on 10/03/2024 was unremarkable - did not show any evidence of constipation or obstruction. She thankfully has had a few bowel movements postoperatively with significant relief of her constipation. Continue bowel regimen. Dysphagia - IMPROVED: Was alerted by nursing staff yesterday evening via TT that the patient was having difficulty swallowing food (particular meat) around dinner time. Patient endorsed that it felt as if the food was "getting stuck." She was transitioned to an easy to chew diet with significant improvement in her dysphagia. Discussed this situation with the patient's daughter, Nica, this morning - decision was made to her the patient seen by speech pathology prior to discharge in order to discuss any further diet recommendations. Per speech --> "This patient has c/o global sensation (with intermittent cough) indicative of probable esophageal dysfunction. No overt s/s oropharyngeal dysphagia or aspiration." * Continue easy to chew diet, reflux precautions. PPI increased to BID dosing. Can consider outpatient f/u with GI to evaluate esophageal functioning +/- EGD . Patient without previous history of EGD per review of [facility] records. Daughter, Nica, and patient both unsure if she has had one in the past. Previously colonoscopy in 10/2012 which revealed diverticulosis and benign polyps. Other Chronic Medical Conditions: * HTN -> BP remained stable during admission, can continue both home BP meds at time of discharge. * HLD, Depression/LEO, GERD, stress incontinence -> Continue home medications for these specific conditions. DVT Prophylaxis: SCDs/TEDs postoperatively per ortho spine. Continue ASA. Code Status: FULL CODE PCP: Emily Zamora DO [[facility]] Disposition: Patient was supposed to be discharged to [facility] today however this has been postponed until tomorrow per the daughter's request. This was discussed with case management. SNF authorization is good until tomorrow at midnight. I spoke with the patient's daughter, Nica, multiple times throughout the day and made her aware that we will discharge her tomorrow to [facility]. Patient seen in collaboration with Dr. Taylor. Please see addendum. I spent a total of 55 minutes coordinating, documenting, and providing care for this patient excluding time spent in the performance of separately billed services. This included personally reviewing all current laboratories and im aging studies, medical reconciliation, outpatient chart review and discussion with specialists. This chart was completed in part utilizing Speech Voice Recognition Software. Grammatical errors, random word insertions, pronoun errors, and incomplete sentences are an occasional consequence of this system due to software limitations, ambient noise, and hardware issues. Any formal questions or concer ns about the content, text, or information contained within the body of this dictation should be directly addressed to the provider for clarification. Admission and Anticipated Discharge Date Admission Date: September 28, 2024 Supervising Physician Co-Signing Physician Notes I have seen and discussed the case with the collaborating advanced practitioner. I agree with the above PN. I have reviewed and confirmed the patients medical history, the findings on physical examination, and the patients diagnosis and treatment plan with Mark BURLESON and agree with the information documented. 78yoF seen on postop Day 3. Denied acute concerns at that time. Bandage over spine, breath sounds clear, HR regular. Pain controlled. Concerns about swallow: evaluated by speech, recommended diet as tolerated and received. discharge in am I spent a total of 15 minutes coordinating, documenting, and providing care for this patient excluding time spent in the performance of separately billed services. All of the aforementioned completed outside of collaborating with the assigned advanced practitioner for a full treatment plan. Subjective Patient seen and examined this morning. Her daughter, Nica, was present at bedside as well. Patient was having some difficulty swallowing food last night. She reports that it felt like the "food got stuck." She was changed to an easy to chew diet with improvement of her dysphagia. Daughter is requesting for her to be seen by speech therapy. Patient reports good lower back pain control. Denies any nausea/vomiting, shortness of breath or chest pain. Mentions that she was extremely tired after therapy yesterday but was moving around well. Review of Systems Review of Systems: At least ten systems reviewed and negative, except as noted in the subjective section. Physical Exam Physical Exam: General: WD/WN, NAD, sitting up in the bed, very pleasant, conversing appropriately. Daughter at bedside. A+Ox3, euthymic affect. HEENT: Normocephalic, atraumatic. Conjunctivae normal, anicteric sclerae. External ear and nose normal, oropharynx normal. Respiratory: Normal respiratory effort, lungs clear to auscultation, no wheeze/rales/rhonchi. No accessory muscle use. Cardiovascular: Regular rate, rhythm, normal peripheral pulses, no BLE edema. Vessels: No JVD. Abdomen/GI: Active bowel sounds, soft, nondistended, nontender to palpation in all quadrants. Extremities/Musculoskeletal: Touch sensation intact in BLE, surgical dressing dry and intact. Neurologic: No overt focal deficits, CN's II-XI not formally tested but appear grossly intact bilaterally. Skin: No rashes, normal color, warm/dry. CHELSIE drain x 1 intact and draining serosanguineous output appropriately. Results & Data Results & Data Vital Signs (Past 12 Hours) Vital Signs Temp Pulse Resp BP Pulse Ox O2 Del Method 10/05/24 14:27 36.8 C 84 17 112/67 88 L Room Air Laboratory Results Short CBC 10/05/24 Range/Units 06:46 WBC 8.74 (4.8-10.8) K/ul Hgb 9.7 L (12.0-16.0) g/dl Hct 29.9 L (37.0-47.0) % Plt Count 146 (130-400) K/uL BMP 10/05/24 06:46 Sodium 139 Potassium 4.2 Chloride 100 Carbon Dioxide 32 BUN 21 Creatinine 0.69 Glucose 124 H Calcium 8.4 L
[2024-10-05] MEDS: MELATONIN 3 MG TAB PO PRN (20:08)
[2024-10-06 07:07] LABS: Hematocrit (blood only) 29.2 % (37.0-47.0); Hemoglobin 9.4 g/dl (12.0-16.0); Mean Corpuscular Hemoglobin 29.4 pg (25.0-34.0); Mean Corpuscular Hgb Conc 32.2 g/dL (32.0-36.0); Mean Corpuscular Volume 91.3 fL (80.0-100.0); Mean Platelet Volume 10.1 fL (9.4-12.4); Platelet Count 157 K/uL (130-400); RDW Coefficient of Variation 13.4 % (11.5-14.5); RDW Standard Deviation 43.9 fL (36.4-46.3)
[2024-10-06 08:12] VITALS: BP 126/73; RESP 18; TEMP 97.7; O2SAT 95
[2024-10-06 09:40] LABS: BUN Creatinine Ratio 31.9 (10-20); Calcium 8.2 mg/dl (8.6-10.3); Creatinine Clr Calc Pharmacy 77.6 ml/min; Magnesium 2.3 mg/dl (1.7-2.4); Phosphorus 3.2 mg/dl (2.5-4.9); Potassium 3.9 mmol/L (3.5-5.1)
--- NOTE | 2024-10-06 11:26 | Discharge Summary ---
Discharge Summary Date of Service October 06, 2024 Principal Dx & Hospital Course #1 = Principal Diagnosis (1) Spinal stenosis of lumbar region with neurogenic claudication: (2) S/P lumbar spine operation: (3) Acute blood loss anemia: Plan Betty Feldman is an 78-year-old female with known severe degenerative spine disease and severe spinal stenosis of the lumbar spine who presented to the ED on 09/28/2024 with intractable lower back pain and increasing ambulatory dysfunction in addition to radicular/neurogenic claudication symptoms. Additional PMHx includes HLD, prediabetes (Hgb A1c 5.9% in 05/2024), JOSE LUIS [CPAP intolerant], HTN, GERD, stress incontinence, osteoarthritis, sensorineural hearing loss of both ears, LEO/depression and history of breast cancer. Admitted with back pain with Lumbar spine MRI on admission showed multilevel high-grade stenosis most pronounced at L4-5 where there is very severe canal stenosis. Orthopedic spinal surgery was consulted and the patient underwent lumbar decompression and fusion L4-L5 with decompression L2-L3, L3-L4 with Dr. Simpson on 10/02/2024. Pain is well controlled with pain regimen of tylenol and PRN oxycodone. Post op blood loss noted but hgb remains stable at 9.4. - also had postop constant dysphagia noted by nursing staff during admission and underwent speech evaluation -patient has probable esophageal dysfunction but no overt signs or symptoms of oropharyngeal dysphagia or aspiration. Continue easy to chew diet, PPI increased to twice daily dosing. Can consider outpatient follow- up with GI to evaluate esophageal function as an outpatient. Patient to continue other medications for chronic problems as prescribed. Discharged to [facility] today for rehab. Hemodynamically stable at time of discharge. Notes For Next Care Provider Medication Changes From Visit Increased PPI dosing to BID Continue PRN Tylenol and oxycodone for post op pain control along with bowel regimen Admission HPI Per Admitting Provider Patient is an 78-year-old female who has known severe degenerative spine, degenerative disc disease and severe spinal stenosis. Underwent pain management lumbar spine injections on Wednesday for management of her chronic back pain. Since Wednesday she is feels as though her legs have been a bit "spongy" and has had increased issues with ambulation. Came to the emergency room today for evaluation due to her concerns that she may fall. In the emergency room laboratory studies were really unremarkable. CT of the lumbar spine confirms severe degenerative spine disease. Due to some of her issues with ambulation, high risk for falling at home and potentially worsening of her symptoms of the last few days after injection was referred to our service for further evaluation. Time my evaluation patient states her pain is really fairly well- controlled. She describes a neuropathy/radiculopathy type of symptomatology down her lower back and both legs. She confirms that she has had increasing difficulties with ambulation her last few days but really has been progressing over the last few months. Her daughter who is at the bedside also confirms this. She states that since June her ability to ambulate has really declined. She had been previously walking without any assistive device. Over the past several weeks has been using a cane and most recently using a cane and furniture walking through her house. Her symptoms do seem to have exacerbated since her injections on Wednesday. Also complaining of a little bit of a headache since her injection. Denies any fever or chills. No chest pain or palpitations. She denies any issues with her bowel or bladder. Several weeks ago had some constipation but that has since improved since starting some Benefiber. It seemed to start when she started the Gemtesa. She denies any real weakness in her leg is more of a radicular type symptoms and balance and gait disorder. Patient also states that she has some significant degenerative knee arthritis. Has been seen orthopedics for this and had several injections. This is not been helping with her ambulation. Family has been encouraging patient to seek surgical opinion for her severe spinal disease. She had initially been not too interested in pursuing any type of surgical intervention, however, she does now have an appointment with orthopedic spine surgery at [facility] on October 19 Admission Exam Per Admitting Provider Constitutional: Alert, nontoxic, no acute distress HEENT: Mucous membranes moist. Sclera clear Neck: Soft, no adenopathy Lungs: Clear to auscultation, decreased, no wheezes rales or rhonchi CV: S1-S2, regular Abdomen: Soft, nontender, nondistended Extremities: No significant edema Musculoskeletal: No significant pain to palpation over the lumbar spine or in the paravertebral lumbar musculature. Neuro: Strength in the lower extremity is adequate. Slight decrease strength in dorsiflexion of the right great toe when compared to the left Psych: Cooperative, normal mood Discharge Exam Gen: WD/WN, NAD, sitting up in bed after breakfast, a&ox3 HEENT: Normocephalic, atraumatic, conjunctivae moist, sclerae anicteric, mucous membranes moist Lung: Clear to Auscultation bilaterally, no wheezes/rales/rhonchi Heart: Regular rate, regular rhythm, no murmurs, rubs, or gallops Abdomen: Soft, NT, ND +BS x 4 Extremities: +Spinal dressing c/d/i. CHELSIE drain visualized, no edema Skin: Warm, no rash Updated Medication List Medication Instructions Recorded Confirmed Type alendronate 70 mg tablet (Fosamax) 70 mg PO WK 02/25/19 10/03/24 History clonidine HCl 0.1 mg tablet 0.5 tab PO BID 02/25/19 10/03/24 History diphenhydramine HCl 25 mg capsule 50 mg PO Q4 PRN ITCHING/HIVES 02/25/19 10/03/24 History (Benadryl) epinephrine 0.3 mg/0.3 mL 0.3 mg IM UD PRN LIFE THREATENING 02/25/19 10/03/24 History injection, auto-injector (EpiPen ALLERGIES 2-Qamar) tolterodine 1 mg tablet (Detrol) 1 mg PO BID 02/25/19 10/03/24 History acetaminophen 650 mg 650 mg PO HS 09/28/24 10/03/24 History tablet,extended release ascorbic acid (vitamin C) 1,000 mg 1 g PO HS 09/28/24 10/03/24 History tablet (Vitamin C) aspirin 81 mg tablet,delayed 81 mg PO HS 09/28/24 10/03/24 History release atenolol 25 mg tablet 25 mg PO QAM 09/28/24 10/03/24 History calcium 600 mg (as 1 cap PO HS 09/28/24 10/03/24 History carbonate)-vitamin D3 5 mcg (200 unit) capsule (Calcium 600 + D(3)) coenzyme Q10 100 mg capsule 100 mg PO HS 09/28/24 10/03/24 History (CoQ-10) cranberry fruit 450 mg tablet 450 mg PO HS 09/28/24 10/03/24 History (cranberry) glucosamine sulf dipot 1 cap PO HS 09/28/24 10/03/24 History chlr,msm,chond 550 mg-C 30 mg-keila 1 mg capsule (Glucosamine Chondroitin) hydrochlorothiazide 12.5 mg tablet 12.5 mg PO QAM 09/28/24 10/03/24 History multivitamin 1 tab PO HS 09/28/24 10/03/24 History omeprazole 20 mg capsule,delayed 20 mg PO DAILYBB 09/28/24 10/03/24 History release rosuvastatin 5 mg tablet 5 mg PO QAM 09/28/24 10/03/24 History sertraline 100 mg tablet 150 mg PO QAM 09/28/24 10/03/24 History vibegron 75 mg tablet (Gemtesa) 75 mg PO DAILY 09/28/24 10/03/24 History vitamin E 268 mg (400 unit) capsule 268 mg PO HS 09/28/24 10/03/24 History docusate sodium 100 mg capsule 100 mg PO BID #60 caps 10/05/24 Rx oxycodone 5 mg tablet 5 mg PO Q6H PRN Mod-Severe Back 10/05/24 Rx Pain #14 tabs polyethylene glycol 3350 17 gram 17 g PO DAILY #30 ea 10/05/24 Rx oral powder packet (Miralax) Hospital Stay Data Consultations 09/29/24 11:27 Consult Orthopedic Spine Surgery Routine Procedures Performed Operation Date: 10/02/24 07:00 Actual Procedures p Lumbar decompression L2-L5, Lumbar Fusion L4-L5, Spinal Cord Monitoring(Not Applicable) - Nathan Simpson, Diagnostic Imagining Performed 09/28/24 17:00 CT lumbar spine wo con Stat 09/28/24 19:10 MRI Lumbar Spine [MR lumbar spine wo con] Stat 10/02/24 FL lumbar spine 2-3V Routine Pending Results Patient Have Any Pending Studies at Discharge: No Discharge Instructions Given to Patient (Per Discharging Provider) Federico Hernández were admitted to the hospital secondary to intractable lower back pain, ambulatory dysfunction and radicular/neurogenic claudication symptoms. You were evaluated by orthopedic spinal surgery and underwent lumbar spine surgery on 10/02/[address] Simpson for treatment of your severe spinal stenosis (AKA narrowing). You are being discharged to [facility] for rehabilitation therapy. You will be discharged with oral oxycodone 5mg to take every 6 hours as needed for moderate to severe back pain like we had discussed. Please take this medication strictly as prescribed! Narcotic pain medication, such as oxycodone, can cause you to become constipated. Please continue to the bowel regimen like we had discussed - you will be sent to [facility] with scheduled MiraLAX and stool softeners in order to help prevent you from becoming constipated. You can continue take Tylenol as needed. Please take good care of yourself. It has been a pleasure taking care of you. If you have any questions regarding your recent hospitalization please contact [facility] and request Maksim Migueist @ [phone]. Total Time Total Time Spent Total Time Spent (In Minutes): 40 Supervising Physician Co-Signing Physician Notes I have seen and discussed the case with the collaborating advanced practitioner. I agree with the above discharge summary. I have reviewed and confirmed the patients medical history, the findings on physical examination, and the patients diagnosis and treatment plan with Darrick BURLESON and agree with the information documented. 78yoF seen on postop Day 4 Denied acute concerns at that time. Bandage over spine, breath sounds clear, HR regular. Pain controlled. Concerns about swallow: evaluated by speech, recommended diet as tolerated and received. Patient doing well, rrr/CTAB, ready for dispo I spent a total of 15 minutes coordinating, documenting, and providing care for this patient excluding time spent in the performance of separately billed services. All of the aforementioned completed outside of collaborating with the assigned advanced practitioner for a full treatment plan.
[2024-10-06 11:35] VITALS: PULSE 70
--- NOTE | 2024-10-09 11:46 | Anesthesiology Progress Note ---
Date of Service October 09, 2024 Anesthesia Post Procedure Pain Intensity Medial Head: Pain Intensity: 4 Head: Pain Intensity: 3 Back: Pain Intensity: 5 Transfer of Care Handoff Completed per policy Notes Mental Status: alert / awake / arousable Patient Amnestic to Procedure: Yes Nausea / Vomiting: adequately controlled Pain: adequately controlled Airway Patency, RR, SpO2: stable & adequate BP & HR: stable & adequate Hydration State: stable & adequate Anesthetic Complications: no major complications apparent Notes: patient was evaluated at the time of pacu discharge
== END 2024-10-06 12:05 | DRG 402 ==
LOC: ED 16:23 → MERGE 19:10 → 3N 19:10 → SUATTDRO 19:10 → 3N 19:57